=== PATIENT | female | born 1940 | race Caucasian/White ===

== ENCOUNTER 2021-02-24 11:41 | Inpatient (IN) | payer MEDICARE, OTHER ==
--- NOTE | 2021-02-24 12:15 | ED ---
General Adult HPI - General Stated complaint: nausea Time Seen by Provider: 02/24/21 12:14 Source: RN notes reviewed, old records reviewed - History of Present Illness Initial comments: Patient is an 80-year-old female with past medical history remarkable for COPD, CHF, heart. Heart surgery, atrial fibrillation and presents emergency Department complaining of substernal chest pain associated with nausea. She states this is been ongoing for approximate 1 week without any improvement. She also endorses some mild exertional dyspnea, and she does have a history of hypoxic respiratory failure on nasal cannula oxygen 4-5L. she denies any belly pain. Denies any headache, weakness, numbness. She is primarily here for the chest pain as well as the nausea. Patient has inferior substernal chest pain. No radiation to the abdomen. Patient points to the lower sternum when you ask the location of the pain. She describes an achy sensation. She states she has gotten this before, and is uncertain what is causing it. She denies any worsening orthopnea, she has been for multiple months to years sleeping in a recliner at home at night. She is uncertain when she last saw a alcoholic counselor. She endorses a nonproductive cough. Denies any weakness. She is no other acute complaints at this time. She was vaccinated for COVID-19. - Related Data Home Medications Medication Instructions Recorded Confirmed ALPRAZolam [Xanax] 0.5 mg PO HS@2100 02/24/21 02/24/21 Acetaminophen Tab [Tylenol Tab] 1,000 mg PO BID PRN 02/24/21 02/24/21 Acetaminophen [Tylenol] 1,000 mg PO DAILY@1500 02/24/21 02/24/21 Albuterol Nebulized [Ventolin 2.5 mg INHALATION RT-BID@0730,1600 02/24/21 02/24/21 Nebulized] Albuterol Nebulized [Ventolin 2.5 mg INHALATION RT-Q4H PRN 02/24/21 02/24/21 Nebulized] Diltiazem HCl [Diltiazem HCl 24Hr 180 mg PO BID@0700,1700 02/24/21 02/24/21 ER (XR)] Fluticasone Nasal [place] [Flonase 1 spray EA NOSTRIL Q12H PRN 02/24/21 02/24/21 Nasal [place]] Furosemide [Lasix] 80 mg PO DAILY@0700 02/24/21 02/24/21 MORPHINE ORAL MANJULA CONC 20mg/mL 5 mg PO Q2H PRN 02/24/21 02/24/21 [Roxanol Oral Soln Conc 20MG/ML] MORPHINE ORAL MANJULA CONC 20mg/mL 10 mg PO DAILY@1030 02/24/21 02/24/21 [Roxanol Oral Soln Conc 20MG/ML] MORPHINE ORAL MANJULA CONC 20mg/mL 10 mg PO Q2H PRN 02/24/21 02/24/21 [Roxanol Oral Soln Conc 20MG/ML] Mag Hydrox/Aluminum Hyd/Simeth 10 ml PO Q4H PRN 02/24/21 02/24/21 [Mylanta Maximum Strength Liq] Magnesium Hydroxide [Milk of 2,400 mg PO Q48H PRN 02/24/21 02/24/21 Magnesia] Meloxicam 7.5 mg PO DAILY@0700 02/24/21 02/24/21 Na Phos,M-B/Na Phos,Di-Ba [Fleet 133 ml RECTAL Q96H PRN 02/24/21 02/24/21 Adult] Nitroglycerin Sl Tabs [Nitrostat] 0.4 mg SUBLINGUAL Q5M PRN 02/24/21 02/24/21 Omeprazole [PriLOSEC] 20 mg PO BID@0530,1830 02/24/21 02/24/21 Polyethylene Glycol 3350 [Miralax] 17 gm PO DAILY@1430 02/24/21 02/24/21 Potassium Chloride ER [K-Dur 10] 10 meq PO BID@0700,1700 02/24/21 02/24/21 Prochlorperazine [Compazine] 10 mg PO DAILY@0700 02/24/21 02/24/21 Prochlorperazine [Compazine] 10 mg PO Q6H PRN 02/24/21 02/24/21 Sennosides/Docusate Sodium [Senna 1 cap PO BID@0700,1700 02/24/21 02/24/21 Plus 8.6-50 mg Softgel] bisacodyL [Dulcolax] 10 mg RECTAL Q72H PRN 02/24/21 02/24/21 metOLazone [Zaroxolyn] 2.5 mg PO DAILY@0530 02/24/21 02/24/21 Allergies Allergy/AdvReac Type Severity Reaction Status Date / Time amoxicillin [From Augmentin] Allergy Rash/Hives Verified 02/24/21 14:59 clavulanic acid Allergy Rash/Hives Verified 02/24/21 14:59 [From Augmentin] codeine AdvReac Itching Verified 02/24/21 14:59 Review of Systems ROS Statement: Those systems with pertinent positive or pertinent negative responses have been documented in the HPI. Review of Systems: CONST: Denies fever EYES: Denies blurry vision ENT: Denies nasal congestion C/V: Endorses substernal chest pain RESP: Endorses cough GI: Endorses nausea : Denies dysuria SKIN: Denies rash. MSK: Denies joint pain. NEURO: Denies headache ROS Other: All systems not noted in ROS Statement are negative. General Exam - General Exam Comments Initial Comments: General: Appears in no acute distress. On nasal cannula oxygen at her home settings. HEAD: Normal with no signs of head trauma. EYES: PERRLA, EOMI, conjunctiva normal, no discharge. ENT: Hearing grossly intact, normal oropharynx. RESPIRATORY: Patient is mildly reduced breath sounds bilaterally with end expiratory wheezing bilaterally. No increased work of breathing at this time. On nasal cannula oxygen and her home settings. C/V: Regular rate and rhythm. S1 and S2 auscultated, no edema, peripheral pulses 2+ and intact throughout ABD: Abd is soft, nontender, nondistended EXT: Normal range of motion, no obvious deformity SKIN: No rashes or lesions observed on exposed skin. NEURO: Alert and oriented x 4. Cranial nerves II-XII intact. No focal sensory or strength deficits. Course Vital Signs 02/24/21 02/24/21 02/24/21 12:30 14:24 14:31 Temperature 98.2 F Pulse Rate 94 95 Respiratory 22 20 20 Rate Blood Pressure 128/98 142/66 O2 Sat by Pulse 89 L 95 Oximetry 02/24/21 02/24/21 02/24/21 15:30 15:39 16:43 Temperature Pulse Rate 100 100 98 Respiratory 18 Rate Blood Pressure 153/97 O2 Sat by Pulse 99 Oximetry Medical Decision Making - Medical Decision Making Based on the patient's presentation and physical exam, I'm concerned for possible cardiac etiology for her current symptoms. Patient does appear to have an acute COPD exacerbation as well and she'll be provided with steroids as well as breathing treatments. She also be given antiemetics as well as a small fluid bolus. She is not seen a alcoholic counselor in quite some time. Patient was in agreement this plan. She'll be given an aspirin for chest pain. She'll be connected to continuous cardiac monitoring while she is here in the department. Patient's EKG reveals atrial fibrillation that is rate controlled. No signs of acute ischemia.Chest x-ray shows signs concerning for fluid overload versus viral pneumonia. Laboratory studies are remarkable for a mild leukocytosis of 11.0, microcytic anemia with hemoglobin of 10.5. Patient's bicarb is elevated to 44 which is likely chronic secondary to her chronic hypoxic respiratory failure. Troponin is negative. BNP is mildly elevated to about 1100. Urinalysis is concerning for UTI with a large amount of leukocyte esterase and 27 wbc's. She is nauseous we will treat this is positive. Covid is negative. On reevaluation, discussed the patient that I would like to admitted to the hospital for COPD exacerbation, chest pain as well as urinary tract infection. Patient is still feeling somewhat nauseous. She was in agreement with this plan. She'll be started on 1 g of Rocephin daily. 40 mg Solu-Medrol every 6 as well as every 4 units are ordered. We will trend her troponins as well. She was in agreement this plan. I spoke with the admitting physician, Dr. Dobbs, who accepted the patient was in agreement with the plan. Patient was therefore admitted in serious condition to telemetry bed. We will continue her IV Lasix. - Lab Data Result diagrams: 02/24/21 13:13 02/24/21 13:13 Lab Results 02/24/21 02/24/21 02/24/21 Range/Units 13:13 13:13 13:13 WBC 11.0 H (3.8-10.6) k/uL RBC 4.80 (3.80-5.40) m/uL Hgb 10.5 L (11.4-16.0) gm/dL Hct 35.9 (34.0-46.0) % MCV 74.8 L (80.0-100.0) fL MCH 21.9 L (25.0-35.0) pg MCHC 29.3 L (31.0-37.0) g/dL RDW 17.3 H (11.5-15.5) % Plt Count 334 (150-450) k/uL MPV 9.2 Neutrophils % 61 % Lymphocytes % 21 % Monocytes % 10 % Eosinophils % 6 % Basophils % 1 % Neutrophils # 6.7 (1.3-7.7) k/uL Lymphocytes # 2.3 (1.0-4.8) k/uL Monocytes # 1.1 H (0-1.0) k/uL Eosinophils # 0.6 (0-0.7) k/uL Basophils # 0.1 (0-0.2) k/uL Hypochromasia Marked Anisocytosis Slight Microcytosis Moderate PT 9.7 (9.0-12.0) sec INR 0.9 (<1.2) APTT 20.8 L (22.0-30.0) sec Sodium (137-145) mmol/L Potassium (3.5-5.1) mmol/L Chloride (98-107) mmol/L Carbon Dioxide (22-30) mmol/L Anion Gap mmol/L BUN (7-17) mg/dL Creatinine (0.52-1.04) mg/dL Est GFR (CKD-EPI)AfAm (>60 ml/min/1.73 sqM) Est GFR (CKD-EPI)NonAf (>60 ml/min/1.73 sqM) Glucose (74-99) mg/dL Calcium (8.4-10.2) mg/dL Magnesium (1.6-2.3) mg/dL Total Bilirubin (0.2-1.3) mg/dL AST (14-36) U/L ALT (4-34) U/L Alkaline Phosphatase (38-126) U/L Troponin I (0.000-0.034) ng/mL NT-Pro-B Natriuret Pep pg/mL Total Protein (6.3-8.2) g/dL Albumin (3.5-5.0) g/dL Urine Color Light Yellow Urine Appearance Clear (Clear) Urine pH 7.5 (5.0-8.0) Ur Specific [place] 1.008 (1.001-1.035) Urine Protein Negative (Negative) Urine Glucose (UA) Negative (Negative) Urine Ketones Negative (Negative) Urine Blood Negative (Negative) Urine Nitrite Negative (Negative) Urine Bilirubin Negative (Negative) Urine Urobilinogen <2.0 (<2.0) mg/dL Ur Leukocyte Esterase Large H (Negative) Urine RBC 2 (0-5) /hpf Urine WBC 27 H (0-5) /hpf Ur Squamous Epith Cells 1 (0-4) /hpf Urine Mucus Rare H (None) /hpf Coronavirus (PCR) (Not Detectd) 02/24/21 02/24/21 02/24/21 Range/Units 13:13 13:13 13:13 WBC (3.8-10.6) k/uL RBC (3.80-5.40) m/uL Hgb (11.4-16.0) gm/dL Hct (34.0-46.0) % MCV (80.0-100.0) fL MCH (25.0-35.0) pg MCHC (31.0-37.0) g/dL RDW (11.5-15.5) % Plt Count (150-450) k/uL MPV Neutrophils % % Lymphocytes % % Monocytes % % Eosinophils % % Basophils % % Neutrophils # (1.3-7.7) k/uL Lymphocytes # (1.0-4.8) k/uL Monocytes # (0-1.0) k/uL Eosinophils # (0-0.7) k/uL Basophils # (0-0.2) k/uL Hypochromasia Anisocytosis Microcytosis PT (9.0-12.0) sec INR (<1.2) APTT (22.0-30.0) sec Sodium 137 (137-145) mmol/L Potassium 3.6 (3.5-5.1) mmol/L Chloride 84 L (98-107) mmol/L Carbon Dioxide 44 H* (22-30) mmol/L Anion Gap 9 mmol/L BUN 26 H (7-17) mg/dL Creatinine 0.90 (0.52-1.04) mg/dL Est GFR (CKD-EPI)AfAm 70 (>60 ml/min/1.73 sqM) Est GFR (CKD-EPI)NonAf 60 (>60 ml/min/1.73 sqM) Glucose 109 H (74-99) mg/dL Calcium 9.7 (8.4-10.2) mg/dL Magnesium 1.9 (1.6-2.3) mg/dL Total Bilirubin 0.5 (0.2-1.3) mg/dL AST 43 H (14-36) U/L ALT 54 H (4-34) U/L Alkaline Phosphatase 173 H (38-126) U/L Troponin I <0.012 (0.000-0.034) ng/mL NT-Pro-B Natriuret Pep 1190 pg/mL Total Protein 7.0 (6.3-8.2) g/dL Albumin 3.7 (3.5-5.0) g/dL Urine Color Urine Appearance (Clear) Urine pH (5.0-8.0) Ur Specific [place] (1.001-1.035) Urine Protein (Negative) Urine Glucose (UA) (Negative) Urine Ketones (Negative) Urine Blood (Negative) Urine Nitrite (Negative) Urine Bilirubin (Negative) Urine Urobilinogen (<2.0) mg/dL Ur Leukocyte Esterase (Negative) Urine RBC (0-5) /hpf Urine WBC (0-5) /hpf Ur Squamous Epith Cells (0-4) /hpf Urine Mucus (None) /hpf Coronavirus (PCR) (Not Detectd) 02/24/21 Range/Units 13:13 WBC (3.8-10.6) k/uL RBC (3.80-5.40) m/uL Hgb (11.4-16.0) gm/dL Hct (34.0-46.0) % MCV (80.0-100.0) fL MCH (25.0-35.0) pg MCHC (31.0-37.0) g/dL RDW (11.5-15.5) % Plt Count (150-450) k/uL MPV Neutrophils % % Lymphocytes % % Monocytes % % Eosinophils % % Basophils % % Neutrophils # (1.3-7.7) k/uL Lymphocytes # (1.0-4.8) k/uL Monocytes # (0-1.0) k/uL Eosinophils # (0-0.7) k/uL Basophils # (0-0.2) k/uL Hypochromasia Anisocytosis Microcytosis PT (9.0-12.0) sec INR (<1.2) APTT (22.0-30.0) sec Sodium (137-145) mmol/L Potassium (3.5-5.1) mmol/L Chloride (98-107) mmol/L Carbon Dioxide (22-30) mmol/L Anion Gap mmol/L BUN (7-17) mg/dL Creatinine (0.52-1.04) mg/dL Est GFR (CKD-EPI)AfAm (>60 ml/min/1.73 sqM) Est GFR (CKD-EPI)NonAf (>60 ml/min/1.73 sqM) Glucose (74-99) mg/dL Calcium (8.4-10.2) mg/dL Magnesium (1.6-2.3) mg/dL Total Bilirubin (0.2-1.3) mg/dL AST (14-36) U/L ALT (4-34) U/L Alkaline Phosphatase (38-126) U/L Troponin I (0.000-0.034) ng/mL NT-Pro-B Natriuret Pep pg/mL Total Protein (6.3-8.2) g/dL Albumin (3.5-5.0) g/dL Urine Color Urine Appearance (Clear) Urine pH (5.0-8.0) Ur Specific [place] (1.001-1.035) Urine Protein (Negative) Urine Glucose (UA) (Negative) Urine Ketones (Negative) Urine Blood (Negative) Urine Nitrite (Negative) Urine Bilirubin (Negative) Urine Urobilinogen (<2.0) mg/dL Ur Leukocyte Esterase (Negative) Urine RBC (0-5) /hpf Urine WBC (0-5) /hpf Ur Squamous Epith Cells (0-4) /hpf Urine Mucus (None) /hpf Coronavirus (PCR) Not Detected (Not Detectd) - EKG Data -: EKG Interpreted by Me EKG Comments: 12-lead Electrocardiogram Interpretation Note EKG was reviewed and interpreted by myself. 12-lead ECG performed at 1248 is interpreted by me as revealing atrial fibrillation at a rate of 105 beats per minute. Right axis deviation. IA intervals unobtainable. QRS durations 120 ms, QTc is 539 ms.. There were no ST or T wave abnormalities to suggest myocardial ischemia or injury. R wave progression across the precordium was satisfactory. By my interpretation this EKG is non-diagnostic for acute ischemia. Patient has a known history of atrial fibrillation. Disposition Clinical Impression: Chest pain of unknown etiology, Chronic respiratory failure with hypoxia, COPD with acute exacerbation, UTI (urinary tract infection) Disposition: ADMITTED IP TO THIS HOSP Condition: Serious
[2021-02-24] MEDS ORDERED: SODIUM CHLORIDE 0.9% 500 ML 500 ML IV STA (12:30)
[2021-02-24] MEDS ORDERED: IPRATROPIUM-ALBUTEROL 3 ML NEB INHALATION STA (12:30)
[2021-02-24] MEDS ORDERED: MAGNESIUM SULFATE-D5W PMX 1 GM in DEXTROSE/WATER 1 100ML.BAG IVPB ONE (12:30)
[2021-02-24] MEDS ORDERED: ASPIRIN 81 MG PO STA (12:30)
[2021-02-24] MEDS ORDERED: ONDANSETRON 4 MG/2 ML VIAL IVP STA (12:31)
[2021-02-24] MEDS ORDERED: methylPREDNISolone SOD SUCCI 125 MG/2 ML VIAL IV STA (12:31)
--- NOTE | 2021-02-24 13:45 | XR ---
EXAMINATION TYPE: XR chest 2V DATE OF EXAM: 02/24/2021 COMPARISON: NONE HISTORY: 80 years Female. STUDY INDICATION GIVEN: Chest Pain . TECHNIQUE: Frontal lateral chest radiograph IMPRESSION: Patchy low-attenuation in the right lung base. Scattered interstitial opacities in the peripheral asp ect of both lungs. Findings concerning for multifocal pneumonia and/or mild pulmonary edema. Clinical correlation for covid 19 pneumonia recommended. Mild cardiomegaly with postsurgical changes. Atherosclerotic calcifications in the intrathoracic aort a noted. No pneumothorax or pleural effusion. No acute osseous abnormality.
[2021-02-24 13:47] LABS: Anisocytosis Slight; Basophils # (A) 0.1 k/uL (0-0.2); Basophils % (A) 1 %; Eosinophils # (A) 0.6 k/uL (0-0.7); Eosinophils % (A) 6 %; HCT 35.9 % (34.0-46.0); HGB 10.5 gm/dL (11.4-16.0); Hypochromasia Marked; Lymphocytes # (A) 2.3 k/uL (1.0-4.8); Lymphocytes % (A) 21 %; MCH 21.9 pg (25.0-35.0); MCHC 29.3 g/dL (31.0-37.0); MCV 74.8 fL (80.0-100.0); Mean Platelet Volume 9.2; Microcytosis Moderate; Monocytes # (A) 1.1 k/uL (0-1.0); Monocytes % (A) 10 %; Neutrophils # (A) 6.7 k/uL (1.3-7.7); Neutrophils % (A) 61 %; Platelet Count 334 k/uL (150-450); RDW 17.3 % (11.5-15.5)
[2021-02-24 13:57] LABS: Albumin 3.7 g/dL (3.5-5.0); Calcium 9.7 mg/dL (8.4-10.2); Magnesium 1.9 mg/dL (1.6-2.3); Potassium 3.6 mmol/L (3.5-5.1); Total Bilirubin 0.5 mg/dL (0.2-1.3)
[2021-02-24 13:58] LABS: Appearance,Urine Clear (Clear); Bilirubin,Urine Negative (Negative); Blood,Urine Negative (Negative); Color,Urine Light Yellow; Glucose,Urine (UA) Negative (Negative); Ketones,Urine Negative (Negative); Leukocyte Esterase,Urine Large (Negative); Mucus,Urine Rare /hpf; Nitrite,Urine Negative (Negative); PH, Urine 7.5 (5.0-8.0); Protein,Urine Negative (Negative); RBC,Urine 2 /hpf (0-5); Specific Gravity,Urine 1.008 (1.001-1.035); Squamous Epithelial Cell,Urine 1 /hpf (0-4); Urobilinogen,Urine <2.0 mg/dL (<2.0); WBC,Urine 27 /hpf (0-5)
[2021-02-24 13:59] LABS: INR 0.9 (<1.2); Prothrombin Time 9.7 sec (9.0-12.0)
[2021-02-24 14:15] LABS: Partial Thromboplastin Time 20.8 sec (22.0-30.0)
[2021-02-24] MEDS ORDERED: FUROSEMIDE 10 MG/ML 4 ML VIAL IV STA (15:48)
[2021-02-24] MEDS ORDERED: ONDANSETRON 4 MG/2 ML VIAL IVP PRN (16:02)
[2021-02-24] MEDS ORDERED: NALOXONE 0.4 MG/ML 1 ML VIAL IV PRN (16:02)
[2021-02-24] MEDS ORDERED: bisacodyL 10 MG SUPP RECTAL PRN (16:05)
[2021-02-24] MEDS ORDERED: FLUTICASONE 50MCG/SPRAY NASAL 16GM EA NOSTRIL PRN (16:05)
[2021-02-24] MEDS ORDERED: ALBUTEROL NEBULIZED 2.5 MG/3 ML INHALATION PRN (16:05)
[2021-02-24] MEDS ORDERED: MAG HYDROX/AL HYDROX/SIMETH 30 ML CUP PO PRN (16:05)
[2021-02-24] MEDS ORDERED: NA PHOS,M-B/NA PHOS,DI-BA 133 ML ENEMA RECTAL PRN (17:35)
[2021-02-24] MEDS ORDERED: MORPHINE CONC SOLN 10mg/0.5mL ORAL SYRG PO PRN (17:35)
[2021-02-24] MEDS ORDERED: NITROGLYCERIN SL TABS 0.4 MG TAB SUBLINGUAL PRN (17:35)
[2021-02-24] MEDS ORDERED: MAGNESIUM HYDROXIDE 2,400 MG/10 ML CUP PO PRN (17:35)
--- NOTE | 2021-02-24 18:12 | HP ---
HISTORY AND PHYSICAL DATE OF SERVICE: 02/24/2021 CHIEF COMPLAINTS: Chest pain, nausea and shortness of breath. HISTORY OF PRESENT ILLNESS: This 80-year-old woman with a past medical history of multiple medical problems, including atrial fibrillation, CAD, history of CABG, CHF, COPD, being followed by Dr. Johnathan ross in the [facility], was complaining of nausea and left-sided chest pain. The chest pain was going on for the last one week without any relief. The patient had some shortness of breath. The patient is on nasal cannula 4 to 5 L, and the patient came to [facility] and was admitted for further evaluation and treatment. The evaluation showed elevated WBC of 11. Sodium was 137. CO2 was 44, glucose 109. AST and ALT were mildly elevated. UA shows some evidence of UTI and the patient has been admitted for further evaluation and treatment. The chest x-ray, which was reviewed personally by me, showed increased bronchovascular markings. No acute pneumonia was noted. EKG showed non-progression of R-waves as well as atrial fibrillation. There is no history of fever, rigors, chills at this time. PAST MEDICAL HISTORY: Atrial fibrillation, history of CAD, chest pain, CAD, CABG, CHF, COPD. HOME MEDICATIONS: Home medications include morphine oral solution, acetaminophen, Compazine. Nitrostat, milk of magnesia, Flonase, Senna, K-Dur, Prilosec, diltiazem, Ventolin, Tylenol, Xanax, Zaroxolyn, MiraLAX, meloxicam, Lasix. Doses are noted. ALLERGIES: AUGMENTIN, CODEINE. FAMILY HISTORY: No history of heart disease or strokes in the family. SOCIAL HISTORY: Previous history of smoking. REVIEW OF SYSTEMS: ENT: Diminished hearing. Diminished vision. CARDIOVASCULAR SYSTEM: As mentioned earlier. RESPIRATORY SYSTEM: As mentioned earlier. GI: No nausea, vomiting, diarrhea. : No dysuria. NERVOUS SYSTEM: No numbness, weakness. ALLERGY/IMMUNOLOGY: No asthma or hay fever. MUSCULOSKELETAL: As mentioned earlier. HEMATOLOGY/ONCOLOGY: No history of anemia. ENDOCRINE: No history of diabetes, hypothyroidism. CONSTITUTIONAL: As mentioned earlier. DERMATOLOGY: Negative. RHEUMATOLOGY: Negative. PSYCHIATRY: As mentioned earlier. PHYSICAL EXAMINATION: Patient is alert, oriented x. Pulse 98, blood pressure 153/97, respiration 18, temperature normal, pulse ox 99% on 4 L. HEENT: Conjunctivae normal. Oral mucosa moist. NECK: No jugular venous distention. No carotid bruit. No lymph node enlargement. CARDIOVASCULAR: S1, S2 muffled. No S3. No S4. RESPIRATION: Breath sounds diminished at the bases. A few scattered rhonchi and crackles. ABDOMEN: Soft, nontender. No mass palpable. LEGS: No edema. No swelling. NERVOUS SYSTEM: Higher functions as mentioned earlier. Moves all 4 limbs. No focal motor or sensory deficit. LYMPHATICS: No lymph node palpable in neck, axillae or groin. SKIN: No ulcer, rash, bleeding. JOINTS: No active deforming arthropathy. LABS: WBC 11, hemoglobin 10.5. Sodium 137, potassium 3.6. Other labs are noted. ASSESSMENT: 1. Left-sided chest pain. Rule out coronary artery disease. Possible unstable angina. 2. Chronic obstructive pulmonary disease, mild, acute exacerbation. 3. Acute urinary tract infection, present on admission. 4. Increased white count. 5. Anemia, microcytic. 6. Elevated carbon dioxide. 7. Chronic hypoxic hypercarbic respiratory failure, on home oxygen. 8. History of atrial fibrillation. 9. History of chest pain, angina. 10.History of coronary artery disease, coronary artery bypass grafting. 11.History of congestive heart failure. 12.History of chronic obstructive pulmonary disease. 13.Remote history of nicotine dependence. 14.FULL CODE. RECOMMENDATIONS AND DISCUSSION: In this 80-year-old woman who presented with multiple complex medical issues, we will monitor the patient closely, continue the current medications, continue symptomatic treatment. Rule out myocardial infarction. Cardiology consultation. Medical treatment possibly and empiric antibiotics, bronchodilators. Symptomatic treatment also will be provided. Prognosis is guarded because of multiple complex medical issues in this elderly individual with multiple complications. Further recommendations to follow. MMODL / IJN: [id number] / MTDD
[2021-02-24] MEDS: POTASSIUM CHLORIDE ER 10 MEQ TAB.ER.PRT PO SCH (21:44)
[2021-02-24] MEDS: ALPRAZolam 0.5 MG TAB PO SCH (21:44)
[2021-02-24] MEDS: methylPREDNISolone SOD SUCCI 40 MG/ML 1 ML VIAL IV SCH (21:44)
[2021-02-24] MEDS: HEPARIN SODIUM,PORCINE/PF 5,000 UNIT/0.5 ML SYRINGE SQ SCH (21:44)
[2021-02-24] MEDS: DILTIAZEM CD 180 MG CAP.ER.24H PO SCH (21:44)
[2021-02-25] MEDS: IPRATROPIUM-ALBUTEROL 3 ML NEB INHALATION SCH ×6 (00:07→20:23)
[2021-02-25] MEDS: methylPREDNISolone SOD SUCCI 40 MG/ML 1 ML VIAL IV SCH ×5 (00:47→23:46)
[2021-02-25] MEDS ORDERED: MORPHINE ORAL SOLN 10 MG/5 ML CUP PO PRN (01:00)
[2021-02-25] MEDS: PROCHLORPERAZINE 10 MG TAB PO SCH (05:55)
[2021-02-25] MEDS: DILTIAZEM CD 180 MG CAP.ER.24H PO SCH (05:55)
[2021-02-25] MEDS: POTASSIUM CHLORIDE ER 10 MEQ TAB.ER.PRT PO SCH ×2 (05:56→18:15)
[2021-02-25] MEDS: metOLazone 2.5 MG TAB PO SCH (05:56)
[2021-02-25] MEDS: SENNOSIDES 8.6 MG TAB PO SCH ×2 (05:56→18:15)
[2021-02-25] MEDS ORDERED: MELOXICAM 7.5 MG TAB PO SCH (07:00)
[2021-02-25 07:47] LABS: Glucose,Whole Blood 171 mg/dL (75-99)
[2021-02-25] MEDS: ALBUTEROL NEBULIZED 2.5 MG/3 ML INHALATION SCH ×2 (08:37→15:42)
[2021-02-25] MEDS: FUROSEMIDE 40 MG TAB PO SCH (08:41)
[2021-02-25] MEDS: HEPARIN SODIUM,PORCINE/PF 5,000 UNIT/0.5 ML SYRINGE SQ SCH ×2 (08:41→20:52)
[2021-02-25] MEDS: PANTOPRAZOLE 40 MG TABLET PO SCH ×2 (08:45→18:15)
[2021-02-25] MEDS: ACETAMINOPHEN TAB 325 MG TAB PO PRN (08:59)
[2021-02-25] MEDS ORDERED: DILTIAZEM ORAL 60 MG TAB PO STA (10:13)
[2021-02-25] MEDS ORDERED: HEPARIN SODIUM 1,000 UN/ML (10ML VL) IV ONE (10:15)
--- NOTE | 2021-02-25 10:16 | P.CRDCN ---
History of Present Illness History of present illness: HISTORY OF PRESENTING ILLNESS Patient is a pleasant 80-year-old female with history of COPD on 4 L home oxygen, coronary artery disease status post CABG 1999, hypertension, hyperlipidemia, persistent atrial fibrillation with attempted cardioversion previously, arthritis, anemia who presents secondary to chest pain for approximately one week. Patient normally resides at an [facility] and is severely limited in her activities, able to walk to her commode and back. She states normally she is inhibited by shortness of breath as well as chest pressure with minimal activity such as walking across the [place]. She states this has been fairly constant for approximately 3 months. She does not follow with a licensed certified orthotist. She previously followed with a licensed certified orthotist in [facility] who came from [place], some doctor , however she cannot recall. She presents secondary to chest pain which feels similar to her prior CABG and which she gets fairly often which has been fairly constant over the last 1 week. She did have previous hospitalization at [facility] in [place] a month or 2 ago where she was told it was mainly related to A. fib and she did undergo cardioversion at that time. She states she recalls feeling "like she was 17 years old "after the cardioversion however apparently went right back and of A. fib and therefore felt back to her normal self. For some reason she has not b een on anticoagulation however admits previously she was on Eliquis. She denies any hematochezia or melena however does have iron deficiency anemia. She also apparently is not on aspirin and was told that she was taken off of this for some reason. She has not had previous stress testing recently and believes her last heart catheterization was approximately 10 years ago. She does not recall any recent stenting. She attributes most of her debility to COPD on 4 L however also appears to be fairly severe unstable angina with inability to do more than walk to a commode without getting chest pain. On presentation with she was found to be in A. fib with mild RVR, heart rate since admission have been 90s to 110s. She was placed on her home Cardizem 180 mg twice a day as well as her home Lasix 80 mg daily and given steroids. Blood work reveals white blood cell count 11, hemoglobin 10.5, MCV 74, platelets 334, sodium 137, bicarb 44, BUN 26, creatinine is 0.9, troponin negative 3, proBNP 1190, AST 43, ALP 54, albumin 3.7. Chest x-ray shows bilateral patchy infiltrates versus pulmonary edema. Unclear if this is new or old. COVID-19 was negative. She denies any fevers or chills or cough. REVIEW OF SYSTEMS At the time of my exam: CONSTITUTIONAL: Denies fever or chills. CARDIOVASCULAR: +chest pain, +shortness of breath, no orthopnea, PND or palpitations. RESPIRATORY: Denies cough. GASTROINTESTINAL: Denies abdominal pain, diarrhea, constipation, nausea or vomiting. MUSCULOSKELETAL: Denies myalgias. NEUROLOGIC: Denies numbness, tingling or weakness. ENDOCRINE: Denies fatigue, weight change, polydipsia or polyurina. GENITOURINARY: Denies burning, hematuria or urgency with micturation. HEMATOLOGIC: Denies history of anemia or bleeding. PHYSICAL EXAMINATION Vital signs reviewed. CONSTITUTIONAL: No apparent distress, frail on O2 HEENT: Head is normocephalic. Pupils are equal, round. Sclerae anicteric. Mucous membranes of the mouth are moist. No JVD. No carotid bruit. CHEST EXAMINATION: Lungs are clear to auscultation. No chest wall tenderness is noted on palpation or with deep breathing. HEART EXAMINATION: Irregular rate and rhythm. S1, S2 heard. No murmurs, gallops or rub. ABDOMEN: Soft, nontender. Positive bowel sounds. EXTREMITIES: 2+ peripheral pulses, no lower extremity edema and no calf tenderness. NEUROLOGIC EXAMINATION: Patient is awake, alert and oriented x3. ASSESSMENT 1. Unstable angina 2. Coronary artery disease status post CABG 3. Acute on chronic respiratory failure component of chronic COPD however additional component of angina 4. Persistent atrial fibrillation with mild RVR 5. Chronic heart failure (assumed diastolic), appears euvolemic 6. COPD on home O2 7. Hypertension 8. Hyperlipidemia 9. Anemia, likely iron deficiency and has been off of any anticoagulation or antiplatelets PLAN Patient with multiple complex medical problems. She appears to have unstable angina with chest pain and shortness breath with walking to the bathroom and therefore has been using a commode. More recently she has been having chest pain at rest suspect related to severe CAD and mild A. fib with RVR. We will attempt to control her A. fib with rate control and we will increase her Cardizem. She did feel "like she was 17 "after previous cardioversion however apparently this only lasted for approximately 10 minutes. We will start am iodarone and we will try a few months however monitor closely with severe respiratory issues. Possible ablation in the future if she truly was that symptomatic from A. fib. Also if unable to tolerate rhythm control may even consider AV edwin ablation. Patient does however have significant angina and therefore discussed recommendations for heart catheterization, likely 02/26 or 02/27. Check 2-D echo. Attempt to obtain records from prior licensed certified orthotist, Aurelia guaman. Start patient on heparin drip, aspirin and monitor for any bleeding. Likely Eliquis which she had taken previously pending further heart catheterization. Although she is very frail with multiple comorbidities, she does not appear to have any significant quality of life with being bedbound and unable to do any more activity then walked her commode and therefore discussed risks and benefits and heart catheterization with possible PCI appears reasonable despite possible bleeding risk. We will stop her multiple back in attempt to prevent bleeding. Check iron levels and likely give her iron infusion if iron levels low. Further recommendations to follow. Past Medical History Past Medical History: Atrial Fibrillation, Coronary Artery Disease (CAD), Chest Pain / Angina, Heart Failure, COPD, Osteoarthritis (OA) Additional Past Medical History / Comment(s): cabg, HF, COPD History of Any Multi-Drug Resistant Organisms: None Reported Past Surgical History: Adenoidectomy, Cholecystectomy, Coronary Bypass/CABG, Tonsillectomy Past Anesthesia/Blood Transfusion Reactions: No Reported Reaction Past Psychological History: No Psychological Hx Reported Smoking Status: Former smoker Past Alcohol Use History: None Reported Past Drug Use History: None Reported Medications and Allergies Home Medications Medication Instructions Recorded Confirmed Type ALPRAZolam [Xanax] 0.5 mg PO HS@2100 02/24/21 02/24/21 History Acetaminophen Tab [Tylenol Tab] 1,000 mg PO BID PRN 02/24/21 02/24/21 History Acetaminophen [Tylenol] 1,000 mg PO DAILY@1500 02/24/21 02/24/21 History Albuterol Nebulized [Ventolin 2.5 mg INHALATION RT-BID@0730,1600 02/24/21 02/24/21 History Nebulized] Albuterol Nebulized [Ventolin 2.5 mg INHALATION RT-Q4H PRN 02/24/21 02/24/21 History Nebulized] Diltiazem HCl [Diltiazem HCl 24Hr 180 mg PO BID@0700,1700 02/24/21 02/24/21 History ER (XR)] Fluticasone Nasal [place] [Flonase 1 spray EA NOSTRIL Q12H PRN 02/24/21 02/24/21 History Nasal [place]] Furosemide [Lasix] 80 mg PO DAILY@0700 02/24/21 02/24/21 History MORPHINE ORAL MANJULA CONC 20mg/mL 5 mg PO Q2H PRN 02/24/21 02/24/21 History [Roxanol Oral Soln Conc 20MG/ML] MORPHINE ORAL MANJULA CONC 20mg/mL 10 mg PO DAILY@1030 02/24/21 02/24/21 History [Roxanol Oral Soln Conc 20MG/ML] MORPHINE ORAL MANJULA CONC 20mg/mL 10 mg PO Q2H PRN 02/24/21 02/24/21 History [Roxanol Oral Soln Conc 20MG/ML] Mag Hydrox/Aluminum Hyd/Simeth 10 ml PO Q4H PRN 02/24/21 02/24/21 History [Mylanta Maximum Strength Liq] Magnesium Hydroxide [Milk of 2,400 mg PO Q48H PRN 02/24/21 02/24/21 History Magnesia] Meloxicam 7.5 mg PO DAILY@0700 02/24/21 02/24/21 History Na Phos,M-B/Na Phos,Di-Ba [Fleet 133 ml RECTAL Q96H PRN 02/24/21 02/24/21 History Adult] Nitroglycerin Sl Tabs [Nitrostat] 0.4 mg SUBLINGUAL Q5M PRN 02/24/21 02/24/21 History Omeprazole [PriLOSEC] 20 mg PO BID@0530,1830 02/24/21 02/24/21 History Polyethylene Glycol 3350 [Miralax] 17 gm PO DAILY@1430 02/24/21 02/24/21 History Potassium Chloride ER [K-Dur 10] 10 meq PO BID@0700,1700 02/24/21 02/24/21 History Prochlorperazine [Compazine] 10 mg PO DAILY@0700 02/24/21 02/24/21 History Prochlorperazine [Compazine] 10 mg PO Q6H PRN 02/24/21 02/24/21 History Sennosides/Docusate Sodium [Senna 1 cap PO BID@0700,1700 02/24/21 02/24/21 History Plus 8.6-50 mg Softgel] bisacodyL [Dulcolax] 10 mg RECTAL Q72H PRN 02/24/21 02/24/21 History metOLazone [Zaroxolyn] 2.5 mg PO DAILY@0530 02/24/21 02/24/21 History Allergies Allergy/AdvReac Type Severity Reaction Status Date / Time amoxicillin [From Augmentin] Allergy Rash/Hives Verified 02/24/21 14:59 clavulanic acid Allergy Rash/Hives Verified 02/24/21 14:59 [From Augmentin] codeine AdvReac Itching Verified 02/24/21 14:59 Physical Exam Vitals: Vital Signs Temp Pulse Pulse Resp BP BP Pulse Ox 02/25/21 08:46 84 02/25/21 08:37 80 02/25/21 07:30 98.5 F 82 16 131/77 96 02/25/21 02:00 85 16 02/25/21 01:59 97.4 F L 85 16 106/69 94 L 02/25/21 00:20 98 02/25/21 00:07 93 02/24/21 20:00 99 18 02/24/21 19:19 98.3 F 99 18 147/77 97 02/24/21 17:48 18 97 02/24/21 16:43 98 18 153/97 99 02/24/21 15:39 100 02/24/21 15:30 100 02/24/21 14:31 20 02/24/21 14:24 95 20 142/66 95 02/24/21 12:30 98.2 F 94 22 128/98 89 L Intake and Output 02/24/21 02/25/21 02/25/21 22:59 06:59 14:59 Intake Total 50 30 Balance 50 30 Intake: Intake, IV Titration 50 Amount cefTRIAXone 1 gm In 50 Sodium Chloride 0.9% 50 ml @ 100 mls/hr IVPB Q24HR [facility] Rx#:[id number] Oral 30 Other: # Voids 2 Weight 63.503 kg Results 02/24/21 13:13 02/24/21 13:13 Cardiac Enzymes 02/24/21 02/24/21 02/24/21 Range/Units 13:13 13:13 20:16 AST 43 H (14-36) U/L Troponin I <0.012 <0.012 (0.000-0.034) ng/mL 02/24/21 Range/Units 22:43 AST (14-36) U/L Troponin I <0.012 (0.000-0.034) ng/mL Coagulation 02/24/21 Range/Units 13:13 PT 9.7 (9.0-12.0) sec APTT 20.8 L (22.0-30.0) sec CBC 02/24/21 Range/Units 13:13 WBC 11.0 H (3.8-10.6) k/uL RBC 4.80 (3.80-5.40) m/uL Hgb 10.5 L (11.4-16.0) gm/dL Hct 35.9 (34.0-46.0) % Plt Count 334 (150-450) k/uL Comprehensive Metabolic Panel 02/24/21 Range/Units 13:13 Sodium 137 (137-145) mmol/L Potassium 3.6 (3.5-5.1) mmol/L Chloride 84 L (98-107) mmol/L Carbon Dioxide 44 H* (22-30) mmol/L BUN 26 H (7-17) mg/dL Creatinine 0.90 (0.52-1.04) mg/dL Glucose 109 H (74-99) mg/dL Calcium 9.7 (8.4-10.2) mg/dL AST 43 H (14-36) U/L ALT 54 H (4-34) U/L Alkaline Phosphatase 173 H (38-126) U/L Total Protein 7.0 (6.3-8.2) g/dL Albumin 3.7 (3.5-5.0) g/dL Current Medications Generic Name Dose Route Start Last Admin Trade Name Freq PRN Reason Stop Dose Admin Acetaminophen 650 mg 02/24/21 16:02 02/25/21 08:59 Acetaminophen Tab 325 Mg Tab PO 650 mg Q6HR PRN Administration Mild Pain or Fever > 100.5 Al Hydroxide/Mg Hydroxide 10 ml 02/24/21 16:05 Mag Hydrox/Al Hydrox/Simeth 30 Ml Cup PO Q4H PRN GI Upset Albuterol Sulfate 2.5 mg 02/25/21 07:30 02/25/21 08:37 Albuterol Nebulized 2.5 Mg/3 Ml INHALATION Not Given RT-BID@0730,1600 [facility] Albuterol Sulfate 2.5 mg 02/24/21 16:05 Albuterol Nebulized 2.5 Mg/3 Ml INHALATION RT-Q4H PRN Shortness Of Breath Albuterol/Ipratropium 3 ml 02/25/21 00:00 02/25/21 08:35 Ipratropium-Albuterol 3 Ml Neb INHALATION 3 ml RT-Q4H NATHALIE Administration Alprazolam 0.5 mg 02/24/21 21:00 02/24/21 21:44 Alprazolam 0.5 Mg Tab PO 0.5 mg HS@2100 [facility] Administration Bisacodyl 10 mg 02/24/21 16:05 Bisacodyl 10 Mg Supp RECTAL Q72H PRN Constipation Diltiazem HCl 180 mg 02/24/21 17:00 02/25/21 05:55 Diltiazem Cd 180 Mg Cap.Er.24h PO 180 mg BID@0700,1700 [facility] Administration Fluticasone Propionate 1 spray 02/24/21 16:05 Fluticasone 50mcg/[place] Nasal 16gm EA NOSTRIL Q12H PRN Allergy Symptoms Furosemide 80 mg 02/25/21 07:00 02/25/21 08:41 Furosemide 40 Mg Tab PO Not Given DAILY@0700 [facility] Heparin Sodium (Porcine) 5,000 unit 02/24/21 21:00 02/25/21 08:41 Heparin Sodium,Porcine/Pf 5,000 Unit/0.5 Ml Syringe SQ 5,000 unit Q12HR [facility] Administration Ceftriaxone Sodium 1 gm/ 50 mls @ 100 mls/hr 02/24/21 16:15 02/25/21 08:40 Sodium Chloride IVPB 100 mls/hr Q24HR [facility] Administration Magnesium Hydroxide 2,400 mg 02/24/21 17:35 Magnesium Hydroxide 2,400 Mg/10 Ml Cup PO Q48H PRN Constipation Meloxicam 7.5 mg 02/25/21 07:00 02/25/21 05:55 Meloxicam 7.5 Mg Tab PO 7.5 mg DAILY@0700 NATHALIE Administration Methylprednisolone Sodium Succinate 40 mg 02/24/21 21:00 02/25/21 05:55 Methylprednisolone Sod Succi 40 Mg/Ml 1 Ml Vial IV 40 mg Q6HR NATHALIE Administration Metolazone 2.5 mg 02/25/21 05:30 02/25/21 05:56 Metolazone 2.5 Mg Tab PO 2.5 mg DAILY@0530 [facility] Administration Morphine Sulfate 10 mg 02/25/21 10:30 Morphine Oral Soln 10 Mg/5 Ml Cup PO DAILY@1030 [facility] Morphine Sulfate 10 mg 02/25/21 01:00 Morphine Oral Soln 10 Mg/5 Ml Cup PO Q6H PRN Pain Naloxone HCl 0.2 mg 02/24/21 16:02 Naloxone 0.4 Mg/Ml 1 Ml Vial IV Q2M PRN Opioid Reversal Nitroglycerin 0.4 mg 02/24/21 17:35 Nitroglycerin Sl Tabs 0.4 Mg Tab SUBLINGUAL Q5M PRN Chest Pain Ondansetron HCl 4 mg 02/24/21 16:02 Ondansetron 4 Mg/2 Ml Vial IVP Q8HR PRN Nausea And Vomiting Pantoprazole Sodium 40 mg 02/25/21 07:30 02/25/21 08:45 Pantoprazole 40 Mg Tablet PO 40 mg AC-BID NATHALIE Administration Polyethylene Glycol 17 gm 02/25/21 14:30 Polyethylene Glycol 3350 17 Gm Powd.Pack PO DAILY@1430 [facility] Potassium Chloride 10 meq 02/24/21 17:00 02/25/21 05:56 Potassium Chloride Er 10 Meq Tab.Er.Prt PO 10 meq BID@0700,1700 [facility] Administration Prochlorperazine Maleate 10 mg 02/25/21 07:00 02/25/21 05:55 Prochlorperazine 10 Mg Tab PO 10 mg DAILY@0700 [facility] Administration Senna 8.6 mg 02/25/21 07:00 02/25/21 05:56 Sennosides 8.6 Mg Tab PO 8.6 mg BID@0700,1700 [facility] Administration Sodium Biphosphate/Sodium Phosphate 133 ml 02/24/21 17:35 Na Phos,M-B/Na Phos,Di-Ba 133 Ml Enema RECTAL Q96H PRN Constipation Intake and Output 02/24/21 02/25/21 02/25/21 22:59 06:59 14:59 Intake Total 50 30 Balance 50 30 Intake: Intake, IV Titration 50 Amount cefTRIAXone 1 gm In 50 Sodium Chloride 0.9% 50 ml @ 100 mls/hr IVPB Q24HR [facility] Rx#:[id number] Oral 30 Other: # Voids 2 Weight 63.503 kg 02/24/21 13:13 02/24/21 13:13
[2021-02-25] MEDS: MORPHINE ORAL SOLN 10 MG/5 ML CUP PO SCH (11:19)
[2021-02-25] MEDS: AMIODARONE 200 MG TAB PO SCH ×2 (11:19→22:29)
[2021-02-25] MEDS: HEPARIN SOD,PORK IN 0.45% NACL 25,000 UNIT in 0.45% NACL 1 250ML.BAG IV SCH (11:21)
[2021-02-25] MEDS: ASPIRIN 81 MG PO SCH (11:32)
[2021-02-25 11:43] LABS: Glucose,Whole Blood 238 mg/dL (75-99)
[2021-02-25 12:29] LABS: Basophils # (A) 0 X 10*3/uL (0.00-0.10); Basophils % (A) 0 %; Eosinophils # (A) 0 X 10*3/uL (0.04-0.35); Eosinophils % (A) 0 %; HCT 36.6 % (37.2-46.3); HGB 10.2 g/dL (12.0-15.0); Lymphocytes # (A) 0.75 X 10*3/uL (0.90-5.00); Lymphocytes % (A) 12.4 %; MCH 20.9 pg (27.0-32.0); MCHC 27.9 g/dL (32.0-37.0); MCV 75.2 fL (80.0-97.0); Mean Platelet Volume 10.9 fL (9.5-12.2); Monocytes % (A) 3.3 %; Neutrophils # (A) 5.08 X 10*3/uL (1.80-7.70); Neutrophils % (A) 83.8 %; Platelet Count 351 X 10*3/uL (140-440); RBC 4.87 X 10*6/uL (4.10-5.20); WBC 6.06 X 10*3/uL (4.50-10.00)
[2021-02-25 13:25] LABS: African American GFR (CKD) 69.5 (60.0-200.0); BUN/Creat Ratio 27.78 Ratio (12.00-20.00); Carbon Dioxide >40.0 mmol/L (21.6-31.8); Chloride 88 mmol/L (96-109); Glucose 166 mg/dL (70-110); Potassium 3.5 mmol/L (3.5-5.5); Sodium 142 mmol/L (135-145)
[2021-02-25] MEDS: polyethylene glycoL 3350 17 GM POWD.PACK PO SCH (16:09)
[2021-02-25 16:45] LABS: Glucose,Whole Blood 244 mg/dL (75-99)
[2021-02-25 17:14] LABS: Ferritin 27.5 ng/mL (10.0-291.0)
[2021-02-25] MEDS ORDERED: INSULIN ASPART (NovoLOG) 100 UNIT/ML VIAL SQ SCH (17:30)
[2021-02-25 18:16] LABS: % Iron Saturation 5.54 (12.00-45.00)
[2021-02-25] MEDS: DILTIAZEM CD 240 MG CAP.ER.24H PO SCH (18:20)
--- NOTE | 2021-02-25 19:06 | PN ---
PROGRESS NOTE DATE OF SERVICE: 02/25/2021 This 80-year-old woman was admitted with chest pain, shortness of breath, is being closely monitored at this time. Cardiology following the patient closely. We are trying to obtain old records from elsewhere for previous procedures. No chest pain. No palpitations. No fever at this time. PHYSICAL EXAMINATION: Alert and oriented x2. Pulse is 102, blood pressure 105/50, respiration 16, temperature 98.2, pulse ox 98% on 4 L. HEENT: Conjunctivae normal. Oral mucosa moist. NECK: No jugular venous distention. No lymph node enlargement. CARDIOVASCULAR: S1, S2, muffled. No S3, no S4, RESPIRATORY: Diminished breath sounds at the bases. A few scattered rhonchi. ABDOMEN: Soft. NERVOUS SYSTEM: No focal deficits. LABS: CO2 is more than 40 and glucose noted. ASSESSMENT: 1. Left-sided chest pain, possible unstable angina, rule out coronary artery disease. 2. Chronic obstructive pulmonary disease, mild acute exacerbation with hypercarbia with acute hypoxic hypercarbic respiratory failure. 3. Acute urinary tract infection, present on admission. 4. Increased WBC. 5. Anemia, microcytic. 6. Elevated CO2. 7. Chronic hypoxic hypercarbic respiratory failure on home O2. 8. History of atrial fibrillation. 9. History of chest pain, angina. 10.History of CAD, CABG. 11.History of congestive heart failure. 12.History of chronic obstructive pulmonary disease. 13.Remote history of nicotine dependence. 14.FULL CODE. RECOMMENDATIONS: Recommend to continue current management and symptomatic treatment. Otherwise, at this time I would recommend repeat labs, follow closely with cardiology, obtain old reports if possible and further evaluation. Further recommendations to follow. Prognosis guarded. MMODL / IJN: [id number] /
[2021-02-25 20:25] LABS: Glucose,Whole Blood 226 mg/dL (75-99)
[2021-02-25] MEDS: INSULIN ASPART (NovoLOG) 100 UNIT/ML VIAL SQ SCH (20:51)
[2021-02-25] MEDS: ALPRAZolam 0.5 MG TAB PO SCH (20:51)
[2021-02-25] MEDS: HEPARIN SODIUM 1,000 UN/ML (10ML VL) IV PRN (22:48)
[2021-02-26] MEDS: IPRATROPIUM-ALBUTEROL 3 ML NEB INHALATION SCH ×6 (01:28→20:05)
[2021-02-26] MEDS: metOLazone 2.5 MG TAB PO SCH (05:45)
[2021-02-26] MEDS: methylPREDNISolone SOD SUCCI 40 MG/ML 1 ML VIAL IV SCH ×2 (05:46→12:27)
[2021-02-26 06:27] LABS: Anisocytosis Slight; Basophils % (A) 0 %; Eosinophils % (A) 0 %; HCT 34.6 % (34.0-46.0); HGB 10.1 gm/dL (11.4-16.0); Hypochromasia Marked; Lymphocytes % (A) 5 %; MCH 21.7 pg (25.0-35.0); MCHC 29.1 g/dL (31.0-37.0); MCV 74.4 fL (80.0-100.0); Mean Platelet Volume 6.9; Microcytosis Moderate; Monocytes # (A) 0.4 k/uL (0-1.0); Monocytes % (A) 2 %; Neutrophils # (A) 16.7 k/uL (1.3-7.7); Neutrophils % (A) 92 %; Platelet Count 404 k/uL (150-450); RBC 4.65 m/uL (3.80-5.40); RDW 17.6 % (11.5-15.5); WBC 18.1 k/uL (3.8-10.6)
[2021-02-26 06:30] LABS: African American GFR (CKD) 56 (>60 ml/min/1.73 sqM); Blood Urea Nitrogen 42 mg/dL (7-17); Calcium 9.5 mg/dL (8.4-10.2); Chloride 89 mmol/L (98-107); Glucose 158 mg/dL (74-99); Non-African American GFR(CKD) 48 (>60 ml/min/1.73 sqM); Potassium 3.8 mmol/L (3.5-5.1); Sodium 137 mmol/L (137-145)
[2021-02-26 06:32] LABS: INR 0.9 (<1.2); Partial Thromboplastin Time 39.4 sec (22.0-30.0); Prothrombin Time 10.2 sec (9.0-12.0)
[2021-02-26 06:37] LABS: Anion Gap 9 mmol/L
[2021-02-26 06:51] LABS: Carbon Dioxide 39 mmol/L (22-30)
[2021-02-26 07:28] LABS: Glucose,Whole Blood 164 mg/dL (75-99)
[2021-02-26] MEDS: SENNOSIDES 8.6 MG TAB PO SCH ×3 (08:06→17:31)
[2021-02-26] MEDS: DILTIAZEM CD 240 MG CAP.ER.24H PO SCH ×2 (08:06→17:31)
[2021-02-26] MEDS: POTASSIUM CHLORIDE ER 10 MEQ TAB.ER.PRT PO SCH ×2 (08:07→17:29)
[2021-02-26] MEDS: PANTOPRAZOLE 40 MG TABLET PO SCH ×2 (08:07→17:29)
[2021-02-26] MEDS: AMIODARONE 200 MG TAB PO SCH ×2 (08:07→08:08)
[2021-02-26] MEDS: ASPIRIN 81 MG PO SCH (08:07)
[2021-02-26] MEDS: PROCHLORPERAZINE 10 MG TAB PO SCH (08:08)
[2021-02-26] MEDS: INSULIN ASPART (NovoLOG) 100 UNIT/ML VIAL SQ SCH ×4 (08:09→21:29)
[2021-02-26] MEDS: HEPARIN SODIUM,PORCINE/PF 5,000 UNIT/0.5 ML SYRINGE SQ SCH ×2 (08:09→08:27)
[2021-02-26] MEDS ORDERED: ATORVASTATIN 80 MG TAB PO STA (09:27)
[2021-02-26] MEDS ORDERED: ALPRAZolam 0.25 MG TAB PO PRN (09:27)
[2021-02-26] MEDS: FUROSEMIDE 40 MG TAB PO SCH ×2 (09:47→09:58)
[2021-02-26] MEDS: MORPHINE ORAL SOLN 10 MG/5 ML CUP PO SCH (10:38)
[2021-02-26] MEDS: HEPARIN SODIUM 1,000 UN/ML (10ML VL) IV PRN (10:58)
--- NOTE | 2021-02-26 11:03 | P.PN ---
Subjective Patient is a pleasant 80-year-old female with history of COPD on 4 L home oxygen, coronary artery disease status post 4 vessel CABG 1999, hypertension, hyperlipidemia, persistent atrial fibrillation with attempted cardioversion in 2019, arthritis, anemia. She used to follow with cnc lathe programmer at [facility] in [place], but states she has not followed with a cnc lathe programmer in about 8-10 years. Patient presents to the emergency department secondary to chest pain for approximately one week. On admission, she stated that it felt similar to her prior CABG and which she gets fairly often which has been fairly constant over the last 1 week. On presentation with she was found to be in A. fib with mild RVR, heart rate since admission have been 90s to 110s. She was placed on her home Cardizem 180 mg twice a day as well as her home Lasix 80 mg daily and given steroids. troponin negative 3, proBNP 1190. Chest x-ray shows bilateral patchy infiltrates versus pulmonary edema Records obtained from [facility]: Patient was previously hospitalized at [facility] in [place] in December-January 2019. She presented with shortness of breath and palpitations she was found to be in atrial fibrillation with RVR. She was started on IV Cardizem drip. An echo was performed which showed an EF 55-60%. She underwent a nuclear stress test on 12/29/2019 which revealed no reversible ischemia, small area of possible coronary infarct, LVEF 67%, no wall motion abnormality. She also underwent CHICA and cardioversion which was successful however within 2 hours she converted back to atrial fibrillation with RVR. Her CHICA revealed an LVEF 5560 percent, mildly dilated LA, no evidence of pericardial effusion, mild aortic valve sclerosis. She was transitioned to Cardizem 180 mg twice a day and bisoprolol 5 mg daily. No Cardiac catheterization or CABG report was sent over. Patient seen and examined at bedside. No acute distress, she continues to have chest pressure. Some shortness of breath. Telemetry reviewed patient continues to be in atrial fibrillation with better controlled ventricular rates. Laboratory data review WBC 18.1, hemoglobin 10.1, platelets 404, sodium 137, potassium 3.8, BUN 42, serum creatinine 1.08 PHYSICAL EXAMINATION Blood pressure 110/65, heart rate 86, afebrile, maintaining oxygen saturations on 4 L nasal cannula. CONSTITUTIONAL: No apparent distress, frail on O2 HEENT: Neck Supple. No JVD. No carotid bruit. CHEST EXAMINATION: Lungs are clear to auscultation. No chest wall tenderness is noted on palpation or with deep breathing. HEART EXAMINATION: Irregular rate and rhythm. S1, S2 heard. No murmurs, gallops or rub. ABDOMEN: Soft, nontender. Positive bowel sounds. EXTREMITIES: 2+ peripheral pulses, no lower extremity edema and no calf tenderness. NEUROLOGIC EXAMINATION: Patient is awake, alert and oriented x3. ASSESSMENT Unstable angina Coronary artery disease status post 4 vessel CABG in 1999 Acute on chronic respiratory failure component of chronic COPD however additional component of angina Persistent atrial fibrillation with mild RVR - Patient states she was taken off Eliquis, but unsure why. She does have history of anemia Chronic diastolic heart failure, appears euvolemic COPD on home O2 Hypertension Hyperlipidemia Anemia, likely iron deficiency and has been off of any anticoagulation or anti platelets PLAN -Obtain 2D echocardiogram -Patient does have significant angina and therefore discussed recommendations for heart catheterization. -Plan for cardiac catheterization on 02/[address] Lipscomb. -I have discussed the risks, benefits and alternative therapies for the above- mentioned procedure and for both sedation/analgesia as well as necessary blood product administration, if indicated, as they pertain to this patient. The patient has indicated understanding and acceptance of the risks and procedures discussed. Questions have been answered appropriately and he is agreeable to move forward with the above-stated procedure. -NPO after midnight -We will attempt to obtain [facility] -Continue heparin drip, aspirin, statin -Amiodarone 400mg BID (started 02/25) -Cardizem 240mg BID -Further recommendations based on clinical course Objective - Vital Signs Vital signs: Vital Signs Temp 98 F 02/26/21 07:00 Pulse 88 02/26/21 08:32 Resp 18 02/26/21 07:00 BP 110/65 02/26/21 07:00 Pulse Ox 93 L 02/26/21 07:00 Intake & Output 02/25/21 02/26/21 02/26/21 18:59 06:59 18:59 Intake Total 85.852 Balance 85.852 Intake: Intake, IV Titration 85.852 Amount Heparin Sod,Pork in 0.45% 85.852 NaCl 25,000 unit In 0.45 % NaCl 1 250ml.bag @ 12 UNITS/KG/HR 7.62 mls/hr IV .Q24H [facility] Rx#: [id number] Other: Voiding Method Toilet Toilet # Voids 3 1 # Bowel Movements 0 - Labs CBC & Chem 7: 02/26/21 05:42 02/26/21 05:42 Labs: Abnormal Lab Results - Last 24 Hours (Table) 02/25/21 02/25/21 02/25/21 Range/Units 06:50 06:50 06:50 WBC (3.8-10.6) k/uL Hgb 10.2 L (12.0-15.0) g/dL Hct 36.6 L (37.2-46.3) % MCV 75.2 L (80.0-97.0) fL MCH 20.9 L (27.0-32.0) pg MCHC 27.9 L (32.0-37.0) g/dL RDW 19.0 H (11.5-14.5) % Neutrophils # (1.3-7.7) k/uL Lymphocytes # 0.75 L (0.90-5.00) X 10*3/uL Eosinophils # 0 L (0.04-0.35) X 10*3/uL APTT (22.0-30.0) sec Chloride 88 L (96-109) mmol/L Carbon Dioxide >40.0 H* (21.6-31.8) mmol/L BUN (7-17) mg/dL Creatinine (0.52-1.04) mg/dL BUN/Creatinine Ratio 27.78 H (12.00-20.00) Ratio Glucose 166 H (70-110) mg/dL POC Glucose (mg/dL) (75-99) mg/dL Iron 21 L (50-170) ug/dL % Saturation 5.54 L (12.00-45.00) 02/25/21 02/25/21 02/25/21 Range/Units 11:41 16:42 20:24 WBC (3.8-10.6) k/uL Hgb (12.0-15.0) g/dL Hct (37.2-46.3) % MCV (80.0-97.0) fL MCH (27.0-32.0) pg MCHC (32.0-37.0) g/dL RDW (11.5-14.5) % Neutrophils # (1.3-7.7) k/uL Lymphocytes # (0.90-5.00) X 10*3/uL Eosinophils # (0.04-0.35) X 10*3/uL APTT (22.0-30.0) sec Chloride (96-109) mmol/L Carbon Dioxide (21.6-31.8) mmol/L BUN (7-17) mg/dL Creatinine (0.52-1.04) mg/dL BUN/Creatinine Ratio (12.00-20.00) Ratio Glucose (70-110) mg/dL POC Glucose (mg/dL) 238 H 244 H 226 H (75-99) mg/dL Iron (50-170) ug/dL % Saturation (12.00-45.00) 02/26/21 02/26/21 02/26/21 Range/Units 05:42 05:42 05:42 WBC 18.1 H (3.8-10.6) k/uL Hgb 10.1 L (12.0-15.0) g/dL Hct (37.2-46.3) % MCV 74.4 L (80.0-97.0) fL MCH 21.7 L (27.0-32.0) pg MCHC 29.1 L (32.0-37.0) g/dL RDW 17.6 H (11.5-14.5) % Neutrophils # 16.7 H (1.3-7.7) k/uL Lymphocytes # (0.90-5.00) X 10*3/uL Eosinophils # (0.04-0.35) X 10*3/uL APTT 39.4 H (22.0-30.0) sec Chloride 89 L (96-109) mmol/L Carbon Dioxide 39 H (21.6-31.8) mmol/L BUN 42 H (7-17) mg/dL Creatinine 1.08 H (0.52-1.04) mg/dL BUN/Creatinine Ratio (12.00-20.00) Ratio Glucose 158 H (70-110) mg/dL POC Glucose (mg/dL) (75-99) mg/dL Iron (50-170) ug/dL % Saturation (12.00-45.00) 02/26/21 Range/Units 07:27 WBC (3.8-10.6) k/uL Hgb (12.0-15.0) g/dL Hct (37.2-46.3) % MCV (80.0-97.0) fL MCH (27.0-32.0) pg MCHC (32.0-37.0) g/dL RDW (11.5-14.5) % Neutrophils # (1.3-7.7) k/uL Lymphocytes # (0.90-5.00) X 10*3/uL Eosinophils # (0.04-0.35) X 10*3/uL APTT (22.0-30.0) sec Chloride (96-109) mmol/L Carbon Dioxide (21.6-31.8) mmol/L BUN (7-17) mg/dL Creatinine (0.52-1.04) mg/dL BUN/Creatinine Ratio (12.00-20.00) Ratio Glucose (70-110) mg/dL POC Glucose (mg/dL) 164 H (75-99) mg/dL Iron (50-170) ug/dL % Saturation (12.00-45.00) Microbiology - Last 24 Hours (Table) 02/24/21 13:13 Urine Culture - Final Urine,Voided
[2021-02-26 12:02] LABS: Glucose,Whole Blood 283 mg/dL (75-99)
[2021-02-26] MEDS: polyethylene glycoL 3350 17 GM POWD.PACK PO SCH (12:25)
[2021-02-26] MEDS: HEPARIN SOD,PORK IN 0.45% NACL 25,000 UNIT in 0.45% NACL 1 250ML.BAG IV SCH (12:31)
[2021-02-26] MEDS ORDERED: IPRATROPIUM-ALBUTEROL 3 ML NEB INHALATION PRN (12:47)
--- NOTE | 2021-02-26 13:54 | P.CNPUL ---
History of Present Illness Consult date: 02/26/21 Requesting physician: Israel Dobbs Reason for consult: dyspnea, chest pain, COPD, hypoxemia Chief complaint: Chest pain. History of present illness: Pulmonary consult dated 02/26/2021. 80-year-old female who is admitted to the hospital with complaints of chest discomfort, and nausea. The chest pain was substernal in nature. She was seen in the emergency department on February 24. The patient was admitted to the [address] [place] [address]. We were asked to see the patient is a patient has been previously diagnosed with COPD. She apparently has never seen a lung doctor in the past. The patient apparently smoked for 40 years at about a pack or pack and a half a day. Anyway, the patient does not take any breathing medications at home on a regular basis. She does use oxygen at 3-4 L/m . The patient was seen by cardiology. Her primary issue is that of chest discomfort. She is chronica lly short of breath with any activity. She's pretty much at baseline though. She denies any cough, wheezing, phlegm production, chest congestion, fever, or chills. The patient in addition to COPD, has a history of CAD, prior bypass grafting, coronary disease, and heart failure. Family history is negative for cardiac disease although apparently there is a family history of kidney issues. White count 18.1, hemoglobin 10.1, hematocrit 34.6, and platelet count 404,000. PT and INR are normal. PTT is 44.8. Sodium 137, potassium 3.8, chlorides 89, CO2 39, anion gap 9, BUN 42, and creatinine 1.08. Based on the bicarbonate concentration of 39, the patient is likely a CO2 retainer, with a baseline CO2 of 68, plus or minus 2 mmHg. Chest x-ray shows some cardiomegaly, and some patchy atelectatic changes in both lungs. Review of Systems REVIEW OF SYSTEMS: CONSTITUTIONAL: [Negative.] NEUROLOGIC: [ Negative.] HEENT: [ Negative.] CARDIAC: Chest pain, sharp in nature, primarily in the substernal region. PULMONARY: Chronic shortness of breath on exertion. GI: Nausea, without emesis. : [Negative.] RHEUMATOLOGIC: [ Negative.] IMMUNOLOGIC: [ Negative.] ENDOCRINE: [Negative. ] DERMATOLOGIC: [Negative.] Past Medical History Past Medical History: Atrial Fibrillation, Coronary Artery Disease (CAD), Chest Pain / Angina, Heart Failure, COPD, Osteoarthritis (OA) Additional Past Medical History / Comment(s): cabg, HF, COPD History of Any Multi-Drug Resistant Organisms: None Reported Past Surgical History: Adenoidectomy, Cholecystectomy, Coronary Bypass/CABG, Tonsillectomy Past Anesthesia/Blood Transfusion Reactions: No Reported Reaction Past Psychological History: No Psychological Hx Reported Smoking Status: Former smoker Past Alcohol Use History: None Reported Past Drug Use History: None Reported Medications and Allergies Home Medications Medication Instructions Recorded Confirmed Type ALPRAZolam [Xanax] 0.5 mg PO HS@2100 02/24/21 02/24/21 History Acetaminophen Tab [Tylenol Tab] 1,000 mg PO BID PRN 02/24/21 02/24/21 History Acetaminophen [Tylenol] 1,000 mg PO DAILY@1500 02/24/21 02/24/21 History Albuterol Nebulized [Ventolin 2.5 mg INHALATION RT-BID@0730,1600 02/24/21 02/24/21 History Nebulized] Albuterol Nebulized [Ventolin 2.5 mg INHALATION RT-Q4H PRN 02/24/21 02/24/21 History Nebulized] Diltiazem HCl [Diltiazem HCl 24Hr 180 mg PO BID@0700,1700 02/24/21 02/24/21 History ER (XR)] Fluticasone Nasal [employer] [Flonase 1 spray EA NOSTRIL Q12H PRN 02/24/21 02/24/21 History Nasal [employer]] Furosemide [Lasix] 80 mg PO DAILY@0700 02/24/21 02/24/21 History MORPHINE ORAL MANJULA CONC 20mg/mL 5 mg PO Q2H PRN 02/24/21 02/24/21 History [Roxanol Oral Soln Conc 20MG/ML] MORPHINE ORAL MANJULA CONC 20mg/mL 10 mg PO DAILY@1030 02/24/21 02/24/21 History [Roxanol Oral Soln Conc 20MG/ML] MORPHINE ORAL MANJULA CONC 20mg/mL 10 mg PO Q2H PRN 02/24/21 02/24/21 History [Roxanol Oral Soln Conc 20MG/ML] Mag Hydrox/Aluminum Hyd/Simeth 10 ml PO Q4H PRN 02/24/21 02/24/21 History [Mylanta Maximum Strength Liq] Magnesium Hydroxide [Milk of 2,400 mg PO Q48H PRN 02/24/21 02/24/21 History Magnesia] Meloxicam 7.5 mg PO DAILY@0700 02/24/21 02/24/21 History Na Phos,M-B/Na Phos,Di-Ba [Fleet 133 ml RECTAL Q96H PRN 02/24/21 02/24/21 History Adult] Nitroglycerin Sl Tabs [Nitrostat] 0.4 mg SUBLINGUAL Q5M PRN 02/24/21 02/24/21 History Omeprazole [PriLOSEC] 20 mg PO BID@0530,1830 02/24/21 02/24/21 History Polyethylene Glycol 3350 [Miralax] 17 gm PO DAILY@1430 02/24/21 02/24/21 History Potassium Chloride ER [K-Dur 10] 10 meq PO BID@0700,1700 02/24/21 02/24/21 History Prochlorperazine [Compazine] 10 mg PO DAILY@0700 02/24/21 02/24/21 History Prochlorperazine [Compazine] 10 mg PO Q6H PRN 02/24/21 02/24/21 History Sennosides/Docusate Sodium [Senna 1 cap PO BID@0700,1700 02/24/21 02/24/21 Histo ry Plus 8.6-50 mg Softgel] bisacodyL [Dulcolax] 10 mg RECTAL Q72H PRN 02/24/21 02/24/21 History metOLazone [Zaroxolyn] 2.5 mg PO DAILY@0530 02/24/21 02/24/21 History Allergies Allergy/AdvReac Type Severity Reaction Status Date / Time amoxicillin [From Augmentin] Allergy Rash/Hives Verified 02/24/21 14:59 clavulanic acid Allergy Rash/Hives Verified 02/24/21 14:59 [From Augmentin] codeine AdvReac Itching Verified 02/24/21 14:59 Physical Exam Osteopathic Statement: *. No significant issues noted on an osteopathic structural exam other than those noted in the History and Physical/Consult. Vitals: Vital Signs Temp Pulse Pulse Resp BP Pulse Ox 02/26/21 12:17 84 02/26/21 12:02 76 02/26/21 08:32 88 02/26/21 08:22 88 02/26/21 07:00 98 F 86 18 110/65 93 L 02/26/21 02:00 97.9 F 88 18 115/77 92 L 02/25/21 20:39 96 02/25/21 20:24 96 02/25/21 19:29 16 02/25/21 19:26 98.4 F 95 18 106/59 93 L 02/25/21 15:59 104 H 02/25/21 15:42 100 02/25/21 13:50 98.3 F 102 H 16 105/55 93 L Intake and Output 02/25/21 02/26/21 02/26/21 22:59 06:59 14:59 Intake Total 85.852 135.498 Balance 85.852 135.498 Intake: Intake, IV Titration 85.852 135.498 Amount Heparin Sod,Pork in 0.45% 85.852 135.498 NaCl 25,000 unit In 0.45 % NaCl 1 250ml.bag @ 12 UNITS/KG/HR 7.62 mls/hr IV .Q24H [facility] Rx#: [id number] Other: Voiding Method Toilet Toilet Toilet # Voids 1 1 1 No acute distress, oriented 3. No acute respiratory distress, audible whee zing, use of accessory muscles, or conversational dyspnea. The patient's currently on 3 L nasal cannula with adequate saturations. HEENT examination is grossly unremarkable. Neck supple. Full range of motion. No adenopathy thyromegaly or neck vein distention. Cardiovascular examination reveals regular rhythm rate. S1-S2 normal. No S3 or S4. No discernible murmur noted. Heart rate is 84 bpm. Lungs reveal severely diminished breath sounds throughout. Mild to moderate scattered rhonchi are noted. Fine expiratory wheezes are noted as well. No crackles. Breath sounds equal bilaterally.. Abdomen soft bowel sounds are heard. No masses or tenderness. Extremities are intact. No cyanosis clubbing or edema. Skin is without rash or lesion. Neurologic examination is brief but nonfocal. Results - Laboratory Findings CBC and BMP: 02/26/21 05:42 02/26/21 05:42 PT/INR, D-dimer PT 10.2 sec (9.0-12.0) 02/26/21 05:42 INR 0.9 (<1.2) 02/26/21 05:42 Abnormal lab findings: Abnormal Labs 02/24/21 02/24/21 02/24/21 13:13 13:13 13:13 WBC 11.0 H Hgb 10.5 L Hct MCV 74.8 L MCH 21.9 L MCHC 29.3 L RDW 17.3 H Neutrophils # Lymphocytes # Monocytes # 1.1 H Eosinophils # APTT 20.8 L Chloride Carbon Dioxide BUN Creatinine BUN/Creatinine Ratio Glucose POC Glucose (mg/dL) Iron % Saturation AST ALT Alkaline Phosphatase Ur Leukocyte Esterase Large H Urine WBC 27 H Urine Mucus Rare H 02/24/21 02/25/21 02/25/21 13:13 06:50 06:50 WBC Hgb 10.2 L Hct 36.6 L MCV 75.2 L MCH 20.9 L MCHC 27.9 L RDW 19.0 H Neutrophils # Lymphocytes # 0.75 L Monocytes # Eosinophils # 0 L APTT Chloride 84 L 88 L Carbon Dioxide 44 H* >40.0 H* BUN 26 H Creatinine BUN/Creatinine Ratio 27.78 H Glucose 109 H 166 H POC Glucose (mg/dL) Iron % Saturation AST 43 H ALT 54 H Alkaline Phosphatase 173 H Ur Leukocyte Esterase Urine WBC Urine Mucus 02/25/21 02/25/21 02/25/21 06:50 07:29 11:41 WBC Hgb Hct MCV MCH MCHC RDW Neutrophils # Lymphocytes # Monocytes # Eosinophils # APTT Chloride Carbon Dioxide BUN Creatinine BUN/Creatinine Ratio Glucose POC Glucose (mg/dL) 171 H 238 H Iron 21 L % Saturation 5.54 L AST ALT Alkaline Phosphatase Ur Leukocyte Esterase Urine WBC Urine Mucus 02/25/21 02/25/21 02/26/21 16:42 20:24 05:42 WBC Hgb Hct MCV MCH MCHC RDW Neutrophils # Lymphocytes # Monocytes # Eosinophils # APTT Chloride 89 L Carbon Dioxide 39 H BUN 42 H Creatinine 1.08 H BUN/Creatinine Ratio Glucose 158 H POC Glucose (mg/dL) 244 H 226 H Iron % Saturation AST ALT Alkaline Phosphatase Ur Leukocyte Esterase Urine WBC Urine Mucus 02/26/21 02/26/21 02/26/21 05:42 05:42 07:27 WBC 18.1 H Hgb 10.1 L Hct MCV 74.4 L MCH 21.7 L MCHC 29.1 L RDW 17.6 H Neutrophils # 16.7 H Lymphocytes # Monocytes # Eosinophils # APTT 39.4 H Chloride Carbon Dioxide BUN Creatinine BUN/Creatinine Ratio Glucose POC Glucose (mg/dL) 164 H Iron % Saturation AST ALT Alkaline Phosphatase Ur Leukocyte Esterase Urine WBC Urine Mucus 02/26/21 02/26/21 11:04 12:01 WBC Hgb Hct MCV MCH MCHC RDW Neutrophils # Lymphocytes # Monocytes # Eosinophils # APTT 44.8 H Chloride Carbon Dioxide BUN Creatinine BUN/Creatinine Ratio Glucose POC Glucose (mg/dL) 283 H Iron % Saturation AST ALT Alkaline Phosphatase Ur Leukocyte Esterase Urine WBC Urine Mucus - Diagnostic Findings Chest x-ray: image reviewed Assessment and Plan Assessment: Chest pain, currently being evaluated by cardiology. Chronic obstructive pulmonary disease, likely quite severe, as the patient is a CO2 retainer, with a calculated expected PaCO2 of 68, plus or minus 2 mmHg. Previous history of 40 years of tobacco use. History of CAD, status post CABG. History of heart failure. History of atrial fibrillation. History of hypertension. History of chronic anemia. Plan: Plan dated 02/26/2021. The patient's medications have been adjusted accordingly. She is currently on Symbicort 160/4.5, 2 puffs twice a day. In addition, the patient is on DuoNeb nebs, 4 times a day and when necessary. The patient does not need corticosteroids at this time. Her cardiac symptoms are currently being evaluated by the cardiology team. We will continue to follow make recommendations where appropriate. Additional recommendations and suggestions are forthcoming. The patient with deftly benefit from an outpatient pulmonary evaluation with complete pulmonary function test, when she is discharged. Time with Patient: Greater than 30
[2021-02-26] MEDS ORDERED: SODIUM CHLORIDE 0.9% 1,000 ML in EMPTY BAG 1 BAG IV ONE ×2 (15:00→19:00)
--- NOTE | 2021-02-26 16:07 | PN ---
PROGRESS NOTE DATE OF SERVICE: 02/26/2021 This 80-year-old woman who was admitted with left-sided chest pain, scheduled for cardiac cath tomorrow by Cardiology. No chest pain. No palpitations. No fever. Pulmonary is also evaluating the patient for COPD. PHYSICAL EXAMINATION: Alert and oriented times three. Pulse is 76, blood pressure 120/64. Respirations 18, temperature 98 degrees, pulse ox 98% on 4 L. HEENT: Conjunctivae normal. NECK: No JVD. CARDIOVASCULAR: S1, S2 muffled. RESPIRATIONS: Breath sounds diminished in the bases. A few scattered rhonchi. ABDOMEN: Soft. Nontender. NERVOUS SYSTEM: No focal deficits. LABS: WBC 18.1, creatinine is 1.08, glucose noted. ASSESSMENT: 1. Left-sided chest pain possible unstable angina. Rule out coronary artery disease. 2. chronic obstructive pulmonary disease, mild acute exacerbation with hypercarbia and acute hypoxic hypercarbic respiratory failure. 3. Acute urinary tract infection, present on admission. 4. Increased WBC. 5. Anemia, microcytic. 6. Elevated CO2. 7. Chronic hypoxic hypercarbic respiratory failure on home O2. 8. History of atrial fibrillation. 9. History of chest pain, angina. 10.History of coronary artery disease, coronary artery bypass grafting. 11.History of congestive heart failure. 12.History of chronic obstructive pulmonary disease. 13.Remote history of nicotine dependence. 14.FULL CODE. RECOMMENDATION AND DISCUSSION: Continue current medications, management and symptomatic treatment. Otherwise continue the bronchodilators and cardiac medications. Cardiac cath per Cardiology. Guarded prognosis. Further recommendations to follow. MMODL / IJN: [id number] /
[2021-02-26 17:21] LABS: Glucose,Whole Blood 162 mg/dL (75-99)
[2021-02-26] MEDS: SYMBICORT 160-4.5 MCG INHALER INHALATION SCH (20:06)
[2021-02-26 21:03] LABS: Glucose,Whole Blood 247 mg/dL (75-99)
[2021-02-26] MEDS: ALPRAZolam 0.5 MG TAB PO SCH (21:29)
[2021-02-27 05:41] LABS: Anisocytosis Slight; HGB 9.7 gm/dL (11.4-16.0); Hypochromasia Marked; MCH 22.3 pg (25.0-35.0); MCHC 30.1 g/dL (31.0-37.0); MCV 74.1 fL (80.0-100.0); Mean Platelet Volume 7.3; Microcytosis Moderate; Platelet Count 408 k/uL (150-450); RBC 4.32 m/uL (3.80-5.40); RDW 17.7 % (11.5-15.5); WBC 18.2 k/uL (3.8-10.6)
[2021-02-27 06:05] LABS: African American GFR (CKD) 60 (>60 ml/min/1.73 sqM); Blood Urea Nitrogen 51 mg/dL (7-17); Calcium 9.1 mg/dL (8.4-10.2); Chloride 90 mmol/L (98-107); Glucose 149 mg/dL (74-99); Non-African American GFR(CKD) 52 (>60 ml/min/1.73 sqM); Potassium 3.8 mmol/L (3.5-5.1); Sodium 137 mmol/L (137-145)
[2021-02-27 06:09] LABS: Glucose,Whole Blood 158 mg/dL (75-99)
[2021-02-27 06:11] LABS: Anion Gap 10 mmol/L; Carbon Dioxide 37 mmol/L (22-30)
--- NOTE | 2021-02-27 06:52 | P.PN ---
Subjective Progress Note Date: 02/27/21 Principal diagnosis: Chest pain. Pulmonary consult dated 02/26/2021. 80-year-old female who is admitted to the hospital with complaints of chest discomfort, and nausea. The chest pain was substernal in nature. She was seen in the emergency department on February 24. The patient was admitted to the [address] [place] [address]. We were asked to see the patient is a patient has been previously diagnosed with COPD. She apparently has never seen a lung doctor in the past. The patient apparently smoked for 40 years at about a pack or pack and a half a day. Anyway, the patient does not take any breathing medications at home on a regular basis. She does use oxygen at 3-4 L/m . The patient was seen by cardiology. Her primary issue is that of chest discomfort. She is chronic ally short of breath with any activity. She's pretty much at baseline though. She denies any cough, wheezing, phlegm production, chest congestion, fever, or chills. The patient in addition to COPD, has a history of CAD, prior bypass grafting, coronary disease, and heart failure. Family history is negative for cardiac disease although apparently there is a family history of kidney issues. White count 18.1, hemoglobin 10.1, hematocrit 34.6, and platelet count 404,000. PT and INR are normal. PTT is 44.8. Sodium 137, potassium 3.8, chlorides 89, CO2 39, anion gap 9, BUN 42, and creatinine 1.08. Based on the bicarbonate concentration of 39, the patient is likely a CO2 retainer, with a baseline CO2 of 68, plus or minus 2 mmHg. Chest x-ray shows some cardiomegaly, and some patchy atelectatic changes in both lungs. Progress note dated 02/27/2021. The patient was admitted with a diagnosis of chest pain. The patient is to have a cardiac catheterization today with Dr. Lipscomb. The patient most likely has underlying significant COPD, based on her smoking history, examination, sympt oms, and the fact, that she is likely a CO2 retainer. The patient will need an outpatient evaluation including complete pulmonary function tests, and a 6 minute walk distance. Currently, she is resting comfortably. White count 18.2, hemoglobin 9.7, hematocrit 32 and platelet count 488,000. PTT is 50.3. Sodium and potassium are normal. Chloride 90, CO2 37, anion gap 10, BUN 51, and creatinine 1.02. Chest x-ray from the was already reviewed. Objective - Vital Signs Vital signs: Vital Signs Temp 97.5 F L 02/27/21 02:18 Pulse 82 02/27/21 02:18 Resp 16 02/27/21 02:18 BP 117/71 02/27/21 02:18 Pulse Ox 97 02/27/21 02:18 Intake & Output 02/26/21 02/26/21 02/27/21 06:59 18:59 06:59 Intake Total 85.852 253.498 0 Balance 85.852 253.498 0 Intake: Intake, IV Titration 85.852 135.498 Amount Heparin Sod,Pork in 0.45% 85.852 135.498 NaCl 25,000 unit In 0.45 % NaCl 1 250ml.bag @ 12 UNITS/KG/HR 7.62 mls/hr IV .Q24H [facility] Rx#: [id number] Oral 118 0 Other: Voiding Method Toilet Toilet Toilet # Voids 1 1 # Bowel Movements 0 - Exam No acute distress, oriented 3. No acute respiratory distress, audible wheezing, use of accessory muscles, or conversational dyspnea. The patient's currently on 4 L nasal cannula with adequate saturations. HEENT examination is grossly unremarkable. Neck supple. Full range of motion. No adenopathy thyromegaly or neck vein distention. Cardiovascular examination reveals regular rhythm rate. S1-S2 normal. No S3 or S4. No discernible murmur noted. Heart rate is 82 bpm. Lungs reveal severely diminished breath sounds throughout. Mild to moderate scattered rhonchi are noted. Fine expiratory wheezes are noted as well. No crackles. Breath sounds equal bilaterally.. Abdomen soft bowel sounds are heard. No masses or tenderness. Extremities are intact. No cyanosis clubbing or edema. Skin is without rash or lesion. Neurologic examination is brief but nonfocal. - Labs CBC & Chem 7: 02/27/21 05:06 02/27/21 05:06 Labs: Abnormal Lab Results - Last 24 Hours (Table) 02/26/21 02/26/21 02/26/21 Range/Units 05:42 07:27 11:04 WBC (3.8-10.6) k/uL Hgb (11.4-16.0) gm/dL Hct (34.0-46.0) % MCV (80.0-100.0) fL MCH (25.0-35.0) pg MCHC (31.0-37.0) g/dL RDW (11.5-15.5) % APTT 44.8 H (22.0-30.0) sec Chloride 89 L (98-107) mmol/L Carbon Dioxide 39 H (22-30) mmol/L BUN 42 H (7-17) mg/dL Creatinine 1.08 H (0.52-1.04) mg/dL Glucose 158 H (74-99) mg/dL POC Glucose (mg/dL) 164 H (75-99) mg/dL 02/26/21 02/26/21 02/26/21 Range/Units 12:01 17:20 21:02 WBC (3.8-10.6) k/uL Hgb (11.4-16.0) gm/dL Hct (34.0-46.0) % MCV (80.0-100.0) fL MCH (25.0-35.0) pg MCHC (31.0-37.0) g/dL RDW (11.5-15.5) % APTT (22.0-30.0) sec Chloride (98-107) mmol/L Carbon Dioxide (22-30) mmol/L BUN (7-17) mg/dL Creatinine (0.52-1.04) mg/dL Glucose (74-99) mg/dL POC Glucose (mg/dL) 283 H 162 H 247 H (75-99) mg/dL 02/27/21 02/27/21 02/27/21 Range/Units 05:06 05:06 05:06 WBC 18.2 H (3.8-10.6) k/uL Hgb 9.7 L (11.4-16.0) gm/dL Hct 32.0 L (34.0-46.0) % MCV 74.1 L (80.0-100.0) fL MCH 22.3 L (25.0-35.0) pg MCHC 30.1 L (31.0-37.0) g/dL RDW 17.7 H (11.5-15.5) % APTT 50.3 H (22.0-30.0) sec Chloride 90 L (98-107) mmol/L Carbon Dioxide 37 H (22-30) mmol/L BUN 51 H (7-17) mg/dL Creatinine (0.52-1.04) mg/dL Glucose 149 H (74-99) mg/dL POC Glucose (mg/dL) (75-99) mg/dL 02/27/21 Range/Units 06:07 WBC (3.8-10.6) k/uL Hgb (11.4-16.0) gm/dL Hct (34.0-46.0) % MCV (80.0-100.0) fL MCH (25.0-35.0) pg MCHC (31.0-37.0) g/dL RDW (11.5-15.5) % APTT (22.0-30.0) sec Chloride (98-107) mmol/L Carbon Dioxide (22-30) mmol/L BUN (7-17) mg/dL Creatinine (0.52-1.04) mg/dL Glucose (74-99) mg/dL POC Glucose (mg/dL) 158 H (75-99) mg/dL Assessment and Plan Assessment: Chest pain, currently being evaluated by cardiology, with cardiac catheterization planned for February 27. Chronic obstructive pulmonary disease, likely quite severe, as the patient is a CO2 retainer, with a calculated expected PaCO2 of 68, plus or minus 2 mmHg. Previous history of 40 years of tobacco use. History of CAD, status post CABG. History of heart failure. History of atrial fibrillation. History of hypertension. History of chronic anemia. Plan: Plan dated 02/26/2021. The patient's medications have been adjusted accordingly. She is currently on Symbicort 160/4.5, 2 puffs twice a day. In addition, the patient is on DuoNeb nebs, 4 times a day and when necessary. The patient does not need corticosteroids at this time. Her cardiac symptoms are currently being evaluated by the cardiology team. We will continue to follow make recommendations where appropriate. Additional recommendations and suggestions are forthcoming. The patient with deftly benefit from an outpatient pulmonary evaluation with complete pulmonary function test, when she is discharged. Plan dated 02/27/2021. The patient is scheduled to have a cardiac catheterization today. She remains on saline at 20 mL an hour, and IV heparin. The patient also remains on 4 L nasal cannula. Once she is discharged from the hospital, she would need a thorough pulmonary evaluation. This will include a follow-up evaluation in my office, as well as a complete pulmonary function test, in 6 minute walk distance. Additional recommendations and suggestions are forthcoming. We will continue to follow make recommendations where appropriate. Time with Patient: Less than 30
[2021-02-27] MEDS ORDERED: HEPARIN SODIUM,PORCINE 2,500 UNIT in SODIUM CHLORIDE 0.9% 250 ML IRRIGATION PRN (07:00)
[2021-02-27] MEDS ORDERED: HEPARIN SODIUM,PORCINE 10,000 UNIT in SODIUM CHLORIDE 0.9% 1,000 ML IRRIGATION PRN (07:00)
[2021-02-27] MEDS: SYMBICORT 160-4.5 MCG INHALER INHALATION SCH ×2 (07:20→19:33)
[2021-02-27] MEDS: IPRATROPIUM-ALBUTEROL 3 ML NEB INHALATION SCH ×3 (07:20→19:34)
[2021-02-27] MEDS: POTASSIUM CHLORIDE ER 10 MEQ TAB.ER.PRT PO SCH ×3 (08:34→16:26)
[2021-02-27] MEDS: DILTIAZEM CD 240 MG CAP.ER.24H PO SCH ×2 (08:36→16:26)
[2021-02-27] MEDS: ASPIRIN 81 MG PO SCH ×2 (08:36→11:11)
[2021-02-27] MEDS: AMIODARONE 200 MG TAB PO SCH ×2 (08:37→21:01)
[2021-02-27] MEDS: PROCHLORPERAZINE 10 MG TAB PO SCH ×2 (08:38→11:12)
[2021-02-27] MEDS: INSULIN ASPART (NovoLOG) 100 UNIT/ML VIAL SQ SCH ×4 (08:38→20:53)
[2021-02-27] MEDS: PANTOPRAZOLE 40 MG TABLET PO SCH ×2 (08:39→16:38)
[2021-02-27] MEDS: SENNOSIDES 8.6 MG TAB PO SCH ×2 (11:12→16:29)
[2021-02-27] MEDS: MORPHINE ORAL SOLN 10 MG/5 ML CUP PO SCH ×2 (11:13→14:11)
[2021-02-27] MEDS: HEPARIN SOD,PORK IN 0.45% NACL 25,000 UNIT in 0.45% NACL 1 250ML.BAG IV SCH (11:46)
[2021-02-27] MEDS ORDERED: LIDOCAINE 1% INJ 10MG/ML (20 ML MDV) ONE (11:57)
[2021-02-27] MEDS ORDERED: VERAPAMIL 2.5 MG/ML 2 ML AMP ONE (11:57)
[2021-02-27 11:59] LABS: Glucose,Whole Blood 124 mg/dL (75-99)
[2021-02-27] MEDS ORDERED: fentaNYL (PF) 50 MCG/ML 2 ML AMP ONE (12:44)
[2021-02-27] MEDS ORDERED: MIDAZOLAM 2 MG/2 ML VIAL IV ONE ×2 (12:47)
[2021-02-27] MEDS ORDERED: VERAPAMIL SYRINGE (5 MG/10 ML) INTRAARTER ONE ×3 (12:48→12:51)
[2021-02-27] MEDS ORDERED: LIDOCAINE 1% INJ 10MG/ML (10 ML MDV) SQ ONE ×2 (12:48→12:49)
[2021-02-27] MEDS ORDERED: HEPARIN SODIUM 1,000 UN/ML (10ML VL) ONE (12:49)
[2021-02-27] MEDS ORDERED: HEPARIN SODIUM 1,000 UN/ML (10ML VL) IV ONE (12:58)
[2021-02-27] MEDS ORDERED: IOPAMIDOL-370 125ML BTL INJ ONE (13:22)
[2021-02-27] MEDS ORDERED: SODIUM CHLORIDE 0.9% 1,000 ML IV ONE (13:22)
[2021-02-27] MEDS ORDERED: RX INFO: IV CONTRAST WAS GIVEN 1 EACH MISC MISCELLANE PRN (13:40)
--- NOTE | 2021-02-27 13:40 | P.CARDCATH ---
Description of Procedure: PROCEDURES PERFORMED: Left heart catheterization, bilateral coronary angiography, ALARCON angiography, SVG to diagonal/ramus, SVG to OM angiography, iFR RCA INDICATION: Chest pain concerning for unstable angina HISTORY: Patient is pleasant 80-year-old female with advanced COPD, coronary artery disease status post 4 vessel CABG with operative report noting ALARCON to LAD, SVG to diagonal, SVG to OM and SVG to RCA. She has been extremely debilitated with inability to do more than walk from her bed to the bathroom and therefore has been fairly bedbound and using a commode. She states most of her inhibition is that if she overdoes things she will become short of breath and have chest pressure and tightness. CONSENT:I have discussed the risks, benefits and alternative therapies for the above-mentioned procedure and for both sedation/analgesia as well as necessary blood product administration, if indicated, as they pertain to this patient. The patient has indicated understanding and acceptance of the risks and procedures discussed. PROCEDURE: After the risks, benefits and alternatives of the above mentioned procedure explained in detail with the patient, informed consent was obtained. Patient was taken to the catheterization lab and prepped and draped in usual fashion. 1% lidocaine was used to anesthetize the left radial artery. A 6- [place] sheath was placed in the left radial artery using modified Seldinger technique. Left coronary angiography was performed with a 5-[place] JL 4.0 catheter and right coronary angiography was performed with a 5-[place] JR5 catheter in various views. A 5-[place] FR5 catheter was inserted into the left ventricle and pressure measurements were obtained. SVG to diagonal/ramus and SVG to OM were performed with a 5Fr FR5. The SVG to RCA was noted to be occluded with no competitive flow. ALARCON angiography was performed and noted to be atretic and occluded The decision was made to perform iFR of the RCA given it appeared to be approximately 60% and the main possible target for intervention. Therefore heparin was given for ACT greater than 200. A 6-[place] effort 5 guide was used to engage the RCA. A 0.014 pressure wire was advanced into the proximal RCA and normalized. It was then advanced 1 cm distal to the lesion and iFR was performed and resulted 0.91. The left radial sheath was removed and a TR band was placed with hemostasis achieved. The patient tolerated the procedure well. Patient was transported back to the post catheterization holding area in stable condition. Conscious Sedation: Patient was monitored under the direct supervision of vision of myself for conscious sedation using Versed and fentanyl for a total duration of 35 minutes HEMODYNAMICS: Ao:121/78 LV: 120/2, LVEDP 6 SELECTIVE CORONARY ARTERIOGRAPHY: LEFT MAIN: The left main is a large caliber vessel which trifurcates into the LAD and circumflex. There is a distal 40-50% stenosis. LEFT ANTERIOR DESCENDING CORONARY ARTERY: LAD is a large caliber vessel which wraps around to the apex. There is mild 20-30% proximal LAD stenosis and otherwise mild luminal irregularities. RAMUS: The Ramus has a proximal 50-60% stenosis. There is competitive flow with the SVG. LEFT CIRCUMFLEX CORONARY ARTERY: Left circumflex is a moderate caliber vessel with 100% stenosis. RIGHT CORONARY ARTERY: The right coronary artery is a large caliber vessel which gives off a PDA and PLV branch and is the dominant vessel. There is a proximal 50-60% stenosis and otherwise only mild luminal irregularities. SVG to RCA: Occluded SVG to OM: Widely patent SVG to ramus: Widely patent ALARCON to LAD: Atretic and occluded FINAL IMPRESSION: 1. CAD as described above with left main 40-50% stenosis, LAD 20-30%, ramus 50- 60%, circumflex 100% stenosis, RCA 50-60% stenosis (iFR normal) 2. Patent SVG to OM, SVG to ramus. Occluded ALARCON and SVG to RCA, possibly related to nonsignificant stenosis. 3. Low normal left sided filling pressures PLAN: 1. Aggressive risk factor modification per most recent ACC/AHA guidelines. 2. Patient's [place] disease including left main 40-50% stenosis does not appear critical. Additionally the ALARCON graft went down concerning for nonsignificant left main disease to begin with. Would continue to treat medically. iFR RCA nonsignificant at 0.91. Otherwise appears to be fully revascularized. Would continue to treat COPD and possibly A. fib.
[2021-02-27] MEDS: polyethylene glycoL 3350 17 GM POWD.PACK PO SCH ×2 (14:12→16:30)
--- NOTE | 2021-02-27 15:52 | P.PN ---
Subjective Progress Note Date: 02/27/21 This is an 80-year-old female who was recently admitted with left-sided chest pain scheduled to undergo cardiac catheterization today with cardiology. Patient also being followed by pulmonary for an acute exacerbation of chronic obstructive pulmonary disease. Patient wears 4 L nasal cannula in the outp atient setting and denies any worsening shortness of breath. Patient states the shortness of breath occurs with minimal exertion and patient has continued cough with phlegm production that is clear and frothy in nature. White blood count is 18.2 and hemoglobin is 9.7, platelets are 408. Sodium is 137 with a potassium of 3.8 and current creatinine is 1.02. Blood sugar slightly elevated and will continue sliding scale and monitor Accu-Cheks before meals and at bedtime. Patient also continues on IV ceftriaxone and urine cultures finalized showing apparent skin and urogenital stanislav. Review of systems: Constitutional: No reports of fatigue, fever, or chills Cardiovascular: No reports of chest pain or palpitations Respiratory: reports intermittent shortness of breath and continued cough GI: No reports of nausea, vomiting, or diarrhea : No reports of dysuria or retention Neurovascular: reports of generalized weakness All medications have been reviewed Active Medications Acetaminophen (Acetaminophen Tab 325 Mg Tab) 650 mg PO Q6HR PRN PRN Reason: Mild Pain or Fever > 100.5 Last Admin: 02/25/21 08:59 Dose: 650 mg Documented by: Al Hydroxide/Mg Hydroxide (Mag Hydrox/Al Hydrox/Simeth 30 Ml Cup) 10 ml PO Q4H PRN PRN Reason: GI Upset Albuterol/Ipratropium (Ipratropium-Albuterol 3 Ml Neb) 3 ml INHALATION RT-TID [facility] Last Admin: 02/27/21 11:38 Dose: 3 ml Documented by: Albuterol/Ipratropium (Ipratropium-Albuterol 3 Ml Neb) 3 ml INHALATION RT-Q2H PRN PRN Reason: Shortness Of Breath Or Wheezing Alprazolam (Alprazolam 0.5 Mg Tab) 0.5 mg PO HS@2100 [facility] Last Admin: 02/26/21 21:29 Dose: 0.5 mg Documented by: Alprazolam (Alprazolam 0.25 Mg Tab) 0.25 mg PO Q6HR PRN PRN Reason: Mild Anxiety Amiodarone HCl (Amiodarone 200 Mg Tab) 400 mg PO BID [facility] Last Admin: 02/27/21 08:37 Dose: 400 mg Documented by: Aspirin (Aspirin 81 Mg) 81 mg PO DAILY [facility] Last Admin: 02/27/21 11:11 Dose: 81 mg Documented by: Bisacodyl (Bisacodyl 10 Mg Supp) 10 mg RECTAL Q72H PRN PRN Reason: Constipation Budesonide/Formoterol Fumarate (Symbicort 160-4.5 Mcg Inhaler) 2 puff INHALATION RT-BID [facility] Last Admin: 02/27/21 07:20 Dose: 2 puff Documented by: Diltiazem HCl (Diltiazem Cd 240 Mg Cap.Er.24h) 240 mg PO BID@0700,1700 [facility] Last Admin: 02/27/21 08:36 Dose: 240 mg Documented by: Fluticasone Propionate (Fluticasone 50mcg/[place] Nasal 16gm) 1 spray EA NOSTRIL Q12H PRN PRN Reason: Allergy Symptoms Furosemide (Furosemide 40 Mg Tab) 40 mg PO DAILY@0700 [facility] Last Admin: 02/26/21 09:47 Dose: 40 mg Documented by: Ceftriaxone Sodium 1 gm/ (Sodium Chloride) 50 mls @ 100 mls/hr IVPB Q24HR [facility] Last Admin: 02/27/21 08:39 Dose: 100 mls/hr Documented by: Heparin Sodium (Porcine) 10, (000 unit/ Sodium Chloride) 1,001 mls @ 999 mls/hr IRRIGATION ONCE PRN PRN Reason: INTRA-OP Stop: 02/27/21 23:00 Heparin Sodium (Porcine) 2,500 (unit/ Sodium Chloride) 250.5 mls @ 250 mls/hr IRRIGATION ONCE PRN PRN Reason: INTRA-OP Stop: 02/27/21 23:00 Insulin Aspart (Insulin Aspart (Novolog) 100 Unit/Ml Vial) 0 unit SQ ACHS [facility]; Protocol Last Admin: 02/27/21 12:23 Dose: Not Given Documented by: Magnesium Hydroxide (Magnesium Hydroxide 2,400 Mg/10 Ml Cup) 2,400 mg PO Q48H PRN PRN Reason: Constipation Miscellaneous Information (Rx Info: Iv Contrast Was Given 1 Each Misc) 1 each MISCELLANE DAILY PRN PRN Reason: Per Protocol Stop: 03/01/21 13:40 Morphine Sulfate (Morphine Oral Soln 10 Mg/5 Ml Cup) 10 mg PO DAILY@1030 [facility] Last Admin: 02/27/21 14:11 Dose: 10 mg Documented by: Morphine Sulfate (Morphine Oral Soln 10 Mg/5 Ml Cup) 10 mg PO Q6H PRN PRN Reason: Pain Naloxone HCl (Naloxone 0.4 Mg/Ml 1 Ml Vial) 0.2 mg IV Q2M PRN PRN Reason: Opioid Reversal Nitroglycerin (Nitroglycerin Sl Tabs 0.4 Mg Tab) 0.4 mg SUBLINGUAL Q5M PRN PRN Reason: Chest Pain Ondansetron HCl (Ondansetron 4 Mg/2 Ml Vial) 4 mg IVP Q8HR PRN PRN Reason: Nausea And Vomiting Pantoprazole Sodium (Pantoprazole 40 Mg Tablet) 40 mg PO AC-BID [facility] Last Admin: 02/27/21 08:39 Dose: Not Given Documented by: Polyethylene Glycol (Polyethylene Glycol 3350 17 Gm Powd.Pack) 17 gm PO DAILY@1430 [facility] Last Admin: 02/27/21 14:12 Dose: Not Given Documented by: Potassium Chloride (Potassium Chloride Er 10 Meq Tab.Er.Prt) 10 meq PO BID@0700,1700 [facility] Last Admin: 02/27/21 11:12 Dose: Not Given Documented by: Prochlorperazine Maleate (Prochlorperazine 10 Mg Tab) 10 mg PO DAILY@0700 [facility] Last Admin: 02/27/21 11:12 Dose: Not Given Documented by: Senna (Sennosides 8.6 Mg Tab) 8.6 mg PO BID@0700,1700 [facility] Last Admin: 02/27/21 11:12 Dose: Not Given Documented by: Sodium Biphosphate/Sodium Phosphate (Na Phos,M-B/Na Phos,Di-Ba 133 Ml Enema) 133 ml RECTAL Q96H PRN PRN Reason: Constipation Physical exam: Gen: This is a 80-year-old female awake, alert and oriented 3, well-developed, well-nourished. Temp is 97.5F, pulse is 88, respirations are 18, blood pressure is 127/74, oxygen saturation is 94% on 4 L via nasal cannula HEENT: Head is atraumatic, normocephalic. Pupils equal, round. Sclerae is anicteric. NECK: Supple. No JVD. No lymphadenopathy. No thyromegaly. LUNGS: Diminished breath sounds bilaterally with some scattered rhonchi and coughing noted on exam. Clear frothy phlegm production on exam as well. No intercostal retractions. HEART: S1, S2 are muffled ABDOMEN: Soft. Bowel sounds are present. No masses. No tenderness. EXTREMITIES: No pedal edema. No calf tenderness. NEUROLOGICAL: Patient is awake, alert and oriented x3. Diffusely weak with no focal deficits noted. Assessment: Left-sided chest pain possible unstable angina, rule out coronary artery disease Chronic obstructive pulmonary disease, mild acute exacerbation with hypercarbia an acute hypoxic hypercarbic respiratory failure Acute urinary tract infection, present on admission Increased white blood count Anemia, microcytic [place] elevated CO2 Chronic hypoxic hypercarbic respiratory failure on home O2 History of atrial fibrillation History of chest pain, angina History of coronary disease, coronary artery bypass grafting History of congestive heart failure History of chronic obstructive pulmonary disease next a remote history of nicoti ne dependence Full code Plan: Recommend to continue with current medications and management. Cardiology and pulmonary following closely and patient is maintained on breathing inhalational treatments along with IV ceftriaxone and will continue. Plan is for cardiac catheterization today with Dr. Lipscomb. Will await report. Patient resides at [facility] and will be returning on there once stabilized discharged and social work following. Due to multiple complex medical issues, prognosis is guarded. Possible discharge in 24-48 hours. Objective - Vital Signs Vital signs: Vital Signs Temp 97.5 F L 02/27/21 07:30 Pulse 88 02/27/21 07:30 Resp 18 02/27/21 07:30 BP 127/74 02/27/21 07:30 Pulse Ox 94 L 02/27/21 07:30 Intake & Output 02/26/21 02/27/21 02/27/21 18:59 06:59 18:59 Intake Total 253.498 0 Balance 253.498 0 Intake: Intake, IV Titration 135.498 Amount Heparin Sod,Pork in 0.45% 135.498 NaCl 25,000 unit In 0.45 % NaCl 1 250ml.bag @ 12 UNITS/KG/HR 7.62 mls/hr IV .Q24H [facility] Rx#: [id number] Oral 118 0 Other: Voiding Method Toilet Toilet # Voids 1 # Bowel Movements 0 - Labs CBC & Chem 7: 02/27/21 05:06 02/27/21 05:06 Labs: Abnormal Lab Results - Last 24 Hours (Table) 02/26/21 02/26/21 02/26/21 Range/Units 11:04 12:01 17:20 WBC (3.8-10.6) k/uL Hgb (11.4-16.0) gm/dL Hct (34.0-46.0) % MCV (80.0-100.0) fL MCH (25.0-35.0) pg MCHC (31.0-37.0) g/dL RDW (11.5-15.5) % APTT 44.8 H (22.0-30.0) sec Chloride (98-107) mmol/L Carbon Dioxide (22-30) mmol/L BUN (7-17) mg/dL Glucose (74-99) mg/dL POC Glucose (mg/dL) 283 H 162 H (75-99) mg/dL 02/26/21 02/27/21 02/27/21 Range/Units 21:02 05:06 05:06 WBC (3.8-10.6) k/uL Hgb (11.4-16.0) gm/dL Hct (34.0-46.0) % MCV (80.0-100.0) fL MCH (25.0-35.0) pg MCHC (31.0-37.0) g/dL RDW (11.5-15.5) % APTT 50.3 H (22.0-30.0) sec Chloride 90 L (98-107) mmol/L Carbon Dioxide 37 H (22-30) mmol/L BUN 51 H (7-17) mg/dL Glucose 149 H (74-99) mg/dL POC Glucose (mg/dL) 247 H (75-99) mg/dL 02/27/21 02/27/21 Range/Units 05:06 06:07 WBC 18.2 H (3.8-10.6) k/uL Hgb 9.7 L (11.4-16.0) gm/dL Hct 32.0 L (34.0-46.0) % MCV 74.1 L (80.0-100.0) fL MCH 22.3 L (25.0-35.0) pg MCHC 30.1 L (31.0-37.0) g/dL RDW 17.7 H (11.5-15.5) % APTT (22.0-30.0) sec Chloride (98-107) mmol/L Carbon Dioxide (22-30) mmol/L BUN (7-17) mg/dL Glucose (74-99) mg/dL POC Glucose (mg/dL) 158 H (75-99) mg/dL
[2021-02-27] MEDS: FUROSEMIDE 40 MG TAB PO SCH (16:28)
[2021-02-27 17:21] LABS: Glucose,Whole Blood 132 mg/dL (75-99)
--- NOTE | 2021-02-27 19:37 | ECHOF ---
Referral Reason:re: LV function MEASUREMENTS -------- HEIGHT: 157.5 cm WEIGHT: 635.5 kg BP: 127/74 RVIDd: 3.3 cm (< 3.3) IVSd: 1.3 cm (0.6 - 1.1) LVIDd: 4.0 cm (3.9 - 5.3) LVPWd: 1.4 cm (0.6 - 1.1) IVSs: 1.6 cm LVIDs: 2.6 cm LVPWs: 1.8 cm LAESV Index (A-L): 25.74 ml/m Ao Diam: 3.2 cm (2.0 - 3.7) AV Cusp: 1.6 cm (1.5 - 2.6) LA Diam: 5.0 cm (2.7 - 3.8) MV EXCURSION: 21.866 mm (> 18.000) MV EF SLOPE: 141 mm/s (70 - 150) EPSS: 0.9 cm RAP: 5.00 mmHg RVSP: 50.19 mmHg FINDINGS -------- Sinus rhythm with extra systolic beats. This was a technically adequate study. Pt. not able to turn due to recent heart cath. The left ventricular size is normal. There is mild concentric left ventricular hypertrophy. Overa ll left ventricular systolic function is mildly impaired with, an EF between 45 - 50 %. The right ventricle is mildly enlarged. Normal LA size by volume 22+/-6 ml/m2. The right atrium is mildly enlarged. Interatrial and interventricular septum intact. There is mild aortic valve sclerosis. There is no evidence of aortic regurgitation. There is no e vidence of aortic stenosis. Mild mitral annular calcification present. Hnum-yk-yuwkzrgm mitral regurgitation is present. Moderate tricuspid regurgitation present. There is moderate pulmonary hypertension. The right sarath tricular systolic pressure, as measured by Doppler, is 50.19mmHg. The pulmonic valve was not well visualized. There is no pulmonic regurgitation present. The aortic root size is normal. The inferior vena cava is mildly dilated. There is no pericardial effusion. CONCLUSIONS -------- 1. There is mild concentric left ventricular hypertrophy. 2. Overall left ventricular systolic function is mildly impaired with, an EF between 45 - 50 %. 3. The right ventricle is mildly enlarged. 4. Normal LA size by volume 22+/-6 ml/m2. 5. The right atrium is mildly enlarged. 6. Qugd-lo-hmelqzwt mitral regurgitation is present. 7. Moderate tricuspid regurgitation present. 8. There is moderate pulmonary hypertension. 9. There is no pericardial effusion. CUTTING DEPARTMENT SUPERVISOR: Eneida Vela RDCS
[2021-02-27 20:44] LABS: Glucose,Whole Blood 132 mg/dL (75-99)
[2021-02-27] MEDS: ALPRAZolam 0.5 MG TAB PO SCH (21:02)
[2021-02-28 06:26] LABS: African American GFR (CKD) 53 (>60 ml/min/1.73 sqM); Anion Gap 6 mmol/L; Blood Urea Nitrogen 33 mg/dL (7-17); Calcium 9.1 mg/dL (8.4-10.2); Carbon Dioxide 36 mmol/L (22-30); Chloride 97 mmol/L (98-107); Glucose 107 mg/dL (74-99); Non-African American GFR(CKD) 46 (>60 ml/min/1.73 sqM); Potassium 4.2 mmol/L (3.5-5.1); Sodium 139 mmol/L (137-145)
[2021-02-28] MEDS: IPRATROPIUM-ALBUTEROL 3 ML NEB INHALATION SCH ×3 (07:03→19:05)
[2021-02-28] MEDS: SYMBICORT 160-4.5 MCG INHALER INHALATION SCH (07:03)
[2021-02-28 07:42] LABS: Glucose,Whole Blood 106 mg/dL (75-99)
[2021-02-28] MEDS: PANTOPRAZOLE 40 MG TABLET PO SCH ×2 (08:12→17:29)
[2021-02-28] MEDS: ASPIRIN 81 MG PO SCH (08:12)
[2021-02-28] MEDS: SENNOSIDES 8.6 MG TAB PO SCH ×2 (08:12→17:29)
[2021-02-28] MEDS: FUROSEMIDE 40 MG TAB PO SCH (08:13)
[2021-02-28] MEDS: POTASSIUM CHLORIDE ER 10 MEQ TAB.ER.PRT PO SCH ×2 (08:13→17:30)
[2021-02-28] MEDS: AMIODARONE 200 MG TAB PO SCH ×2 (08:16→20:47)
[2021-02-28] MEDS: PROCHLORPERAZINE 10 MG TAB PO SCH (08:16)
[2021-02-28] MEDS: DILTIAZEM CD 240 MG CAP.ER.24H PO SCH ×2 (08:16→17:29)
[2021-02-28] MEDS: INSULIN ASPART (NovoLOG) 100 UNIT/ML VIAL SQ SCH ×4 (08:18→20:50)
[2021-02-28] MEDS: MORPHINE ORAL SOLN 10 MG/5 ML CUP PO SCH (10:30)
--- NOTE | 2021-02-28 11:11 | P.PN ---
Subjective Progress Note Date: 02/28/21 Principal diagnosis: Chest pain. Pulmonary consult dated 02/26/2021. 80-year-old female who is admitted to the hospital with complaints of chest discomfort, and nausea. The chest pain was substernal in nature. She was seen in the emergency department on February 24. The patient was admitted to the [address] [place] [address]. We were asked to see the patient is a patient has been previously diagnosed with COPD. She apparently has never seen a lung doctor in the past. The patient apparently smoked for 40 years at about a pack or pack and a half a day. Anyway, the patient does not take any breathing medications at home on a regular basis. She does use oxygen at 3-4 L/m . The patient was seen by cardiology. Her primary issue is that of chest discomfort. She is chronic ally short of breath with any activity. She's pretty much at baseline though. She denies any cough, wheezing, phlegm production, chest congestion, fever, or chills. The patient in addition to COPD, has a history of CAD, prior bypass grafting, coronary disease, and heart failure. Family history is negative for cardiac disease although apparently there is a family history of kidney issues. White count 18.1, hemoglobin 10.1, hematocrit 34.6, and platelet count 404,000. PT and INR are normal. PTT is 44.8. Sodium 137, potassium 3.8, chlorides 89, CO2 39, anion gap 9, BUN 42, and creatinine 1.08. Based on the bicarbonate concentration of 39, the patient is likely a CO2 retainer, with a baseline CO2 of 68, plus or minus 2 mmHg. Chest x-ray shows some cardiomegaly, and some patchy atelectatic changes in both lungs. Progress note dated 02/27/2021. The patient was admitted with a diagnosis of chest pain. The patient is to have a cardiac catheterization today with Dr. Lipscomb. The patient most likely has underlying significant COPD, based on her smoking history, examination, sympt oms, and the fact, that she is likely a CO2 retainer. The patient will need an outpatient evaluation including complete pulmonary function tests, and a 6 minute walk distance. Currently, she is resting comfortably. White count 18.2, hemoglobin 9.7, hematocrit 32 and platelet count 488,000. PTT is 50.3. Sodium and potassium are normal. Chloride 90, CO2 37, anion gap 10, BUN 51, and creatinine 1.02. Chest x-ray from the was already reviewed. Progress note dated 02/28/2021. This is an 80-year-old female with a history of chest pain. The patient underwent cardiac catheterization. I did read the report. Patient is going be treated medically, with very aggressive risk factor modification. In addition, the patient is currently on a blood thinner, and might be considered for a ca rdioversion down the road. The patient did smoke many years, and likely has underlying significant COPD. The patient likely has at least stage III COPD, based on the fact that she is a retainer of carbon dioxide. We talked about her coming to the office after discharge, for pulmonary function testing in 6 minute walk distance, and she doesn't sound too enthused about that. She also was not too enthused about what cardiology had to say about her. Sodium is 139, potassium 4.2, chlorides 97, CO2 36, anion gap 6, BUN 33, creatinine 1.13. Chest x-ray shows some mild basilar atelectasis, and small bilateral effusions. Objective - Vital Signs Vital signs: Vital Signs Temp 97.8 F 02/28/21 07:00 Pulse 96 02/28/21 10:57 Resp 16 02/28/21 07:00 BP 150/71 02/28/21 07:00 Pulse Ox 92 L 02/28/21 07:05 Intake & Output 02/27/21 02/28/21 02/28/21 18:59 06:59 18:59 Intake Total 850 Balance 850 Intake: IV 600 Intake, IV Titration 250 Amount Heparin Sod,Pork in 0.45% 250 NaCl 25,000 unit In 0.45 % NaCl 1 250ml.bag @ 12 UNITS/KG/HR 7.62 mls/hr IV .Q24H [facility] Rx#: [id number] Other: Voiding Method Bedside Commode Bedside Commode # Voids 5 2 # Bowel Movements 0 - Exam No acute distress, oriented 3. No acute respiratory distress, audible wheezing, use of accessory muscles, or conversational dyspnea. The patient's currently on 4 L nasal cannula with adequate saturations (92 %). HEENT examination is grossly unremarkable. Neck supple. Full range of motion. No adenopathy thyromegaly or neck vein distention. Cardiovascular examination reveals regular rhythm rate. S1-S2 normal. No S3 or S4. No discernible murmur noted. Heart rate is 96 bpm. Lungs reveal severely diminished breath sounds throughout. Mild to moderate scattered rhonchi are noted. Fine expiratory wheezes are noted as well. No crackles. Breath sounds equal bilaterally.. Abdomen soft bowel sounds are heard. No masses or tenderness. Extremities are intact. No cyanosis clubbing or edema. Skin is without rash or lesion. Neurologic examination is brief but nonfocal. - Labs CBC & Chem 7: 02/27/21 05:06 02/28/21 05:40 Labs: Abnormal Lab Results - Last 24 Hours (Table) 02/27/21 02/27/21 02/27/21 Range/Units 11:58 17:20 20:43 Chloride (98-107) mmol/L Carbon Dioxide (22-30) mmol/L BUN (7-17) mg/dL Creatinine (0.52-1.04) mg/dL Glucose (74-99) mg/dL POC Glucose (mg/dL) 124 H 132 H 132 H (75-99) mg/dL 02/28/21 02/28/21 Range/Units 05:40 07:41 Chloride 97 L (98-107) mmol/L Carbon Dioxide 36 H (22-30) mmol/L BUN 33 H (7-17) mg/dL Creatinine 1.13 H (0.52-1.04) mg/dL Glucose 107 H (74-99) mg/dL POC Glucose (mg/dL) 106 H (75-99) mg/dL Assessment and Plan Assessment: Chest pain, currently being evaluated by cardiology, with cardiac catheterization planned for February 27. Patient did not require any stent. The patient will be treated medically. Chronic obstructive pulmonary disease, likely quite severe, as the patient is a CO2 retainer, with a calculated expected PaCO2 of 68, plus or minus 2 mmHg. Previous history of 40 years of tobacco use. History of CAD, status post CABG. History of heart failure. History of atrial fibrillation. History of hypertension. History of chronic anemia. Plan: Plan dated 02/26/2021. The patient's medications have been adjusted accordingly. She is currently on Symbicort 160/4.5, 2 puffs twice a day. In addition, the patient is on DuoNeb nebs, 4 times a day and when necessary. The patient does not need corticosteroids at this time. Her cardiac symptoms are currently being evaluated by the cardiology team. We will continue to follow make recommendations where appropriate. Additional recommendations and suggestions are forthcoming. The patient with deftly benefit from an outpatient pulmonary evaluation with complete pulmonary function test, when she is discharged. Plan dated 02/27/2021. The patient is scheduled to have a cardiac catheterization today. She remains on saline at 20 mL an hour, and IV heparin. The patient also remains on 4 L nasal cannula. Once she is discharged from the hospital, she would need a [facility] pulmonary evaluation. This will include a follow-up evaluation in my office, as well as a complete pulmonary function test, in 6 minute walk distance. Additional recommendations and suggestions are forthcoming. We will continue to follow make recommendations where appropriate. Plan dated 02/28/2021. The patient did have a cardiac catheterization done yesterday. The report was read. The patient is to be managed with aggressive risk factor modification, and down the road, the patient may be a candidate for cardioversion. The patient does not seem very excited about anything that was told to her today by either cardiology or by our group. She likely has severe COPD. She'll need a complete PFTs in 6 she apparently had one in the past and was not too excited about it. I don't have a lot of confidence that the patient will show up to the office post discharge. I will switch the patient from Symbicort to a combination of Pulmicort 1 mg, and formoterol 20 g. Time with Patient: Less than 30
--- NOTE | 2021-02-28 11:13 | P.PN ---
Subjective Patient is a pleasant 80-year-old female with history of COPD on 4 L home oxygen, coronary artery disease status post 4 vessel CABG 2000 (ALARCON to LAD, vein graft to diagonal, OM1 and RCA distal), hypertension, hyperlipidemia, persistent atrial fibrillation with attempted cardioversion in 2019, arthritis, anemia. She used to follow with highway maintenance crew worker at [facility] in [place], but states she has not followed with a highway maintenance crew worker in about 8-10 years. Patient presents to the emergency department secondary to chest pain for approximately one week. On admission, she stated that it felt similar to her prior CABG and which she gets fairly often which has been fairly constant over the last 1 week. On presentation with she was found to be in A. fib with mild RVR, heart rate since admission have been 90s to 110s. She was placed on her home Cardizem 180 mg twice a day as well as her home Lasix 80 mg daily and given steroids. troponin negative 3, proBNP 1190. Records obtained from [facility]: Patient was previously hospitalized at [facility] in [place] in December-January 2019. She presented with shortness of breath and palpitations she was found to be in atrial fibrillation with RVR. She was started on IV Cardizem drip. An echo was performed which showed an EF 55-60%. She underwent a nuclear stress test on which revealed no reversible ischemia, small area of possible coronary infarct, LVEF 67%, no wall motion abnormality. She also underwent CHICA and cardioversion which was successful however within 2 hours she converted back to atrial fibrillation with RVR. Her CHICA revealed an LVEF 5560 percent, mildly dilated LA, no evidence of pericardial effusion, mild aortic valve sclerosis. She was transitioned to Cardizem 180 mg twice a day and bisoprolol 5 mg daily. 02/28/21: Yesterday patient underwent cardiac catheterization with Dr. Lipscomb which revealed left main 4050 percent stenosis, LAD 20-30% stenosis, ramus 5060%, circumflex 100% stenosis, RCA 50-60% stenosis (iFR normal). Patent SVG to OM, SVG to ramus. Occluded ALARCON and SVG to RCA, possibly related to nonsignificant stenosis. Low normal left sided filling pressures. Recommend medical therapy. Patient seen and examined at bedside. No acute distress. She denies chest pain, lightheadedness, dizziness, palpitations. She does continue to have some shortness of breath. Telemetry reviewed patient continues to be in atrial fibrillation with better controlled ventricular rates. Laboratory data review WBC 139, potassium 4.2, BUN 33, serum creatinine 1.1 (elevated creatinine most likely due to contrast from cardiac cath). She is currently maintained on aspirin 81 mg daily, Eliquis 5 mg twice a day, amiodarone 400 mg twice a day, Lasix 20 mg daily PO. Telemetry reviewed patient continues been H fibrillation with controlled ventricular rates. PHYSICAL EXAMINATION Blood pressure 110/65, heart rate 86, afebrile, maintaining oxygen saturations on 4 L nasal cannula. CONSTITUTIONAL: No apparent distress, frail on O2 HEENT: Neck Supple. No JVD. No carotid bruit. CHEST EXAMINATION: Lungs are clear to auscultation. No chest wall tenderness is noted on palpation or with deep breathing. HEART EXAMINATION: Irregular rate and rhythm. S1, S2 heard. No murmurs, gallops or rub. ABDOMEN: Soft, nontender. Positive bowel sounds. EXTREMITIES: 2+ peripheral pulses, no lower extremity edema and no calf tenderness. SKIN: Left wrist cath site clean dry intact no hematoma 2+ pulses NEUROLOGIC EXAMINATION: Patient is awake, alert and oriented x3. ASSESSMENT Unstable angina Coronary artery disease status post 4 vessel CABG in 1999 Acute on chronic respiratory failure component of chronic COPD however additional component of angina Persistent atrial fibrillation with mild RVR - Patient states she was taken off Eliquis, but unsure why. She does have history of anemia. She denies any pro blems when taking Eliquis Chronic diastolic heart failure, appears euvolemic COPD on home O2 Hypertension Hyperlipidemia Anemia, likely iron deficiency and has been off of any anticoagulation or anti platelets PLAN -Start Eliquis 5mg BID for thromboembolic protection -Start atorvastatin 40mg daily -Amiodarone 400mg BID started 02/25, will decrease amiodarone 200mg BID -Cardizem 240mg BID -Lasix PO 20mg daily -From a cardiology perspective patient is stable to be discharged home. Educated patient on close follow up with cardiology and pulmonary. Recommend patient follow up with Dr. Lipscomb in 1 week. Objective - Vital Signs Vital signs: Vital Signs Temp 97.8 F 02/28/21 07:00 Pulse 88 02/28/21 10:43 Resp 16 02/28/21 07:00 BP 150/71 02/28/21 07:00 Pulse Ox 92 L 02/28/21 07:05 Intake & Output 02/27/21 02/28/21 02/28/21 18:59 06:59 18:59 Intake Total 850 Balance 850 Intake: IV 600 Intake, IV Titration 250 Amount Heparin Sod,Pork in 0.45% 250 NaCl 25,000 unit In 0.45 % NaCl 1 250ml.bag @ 12 UNITS/KG/HR 7.62 mls/hr IV .Q24H [facility] Rx#: [id number] Other: Voiding Method Bedside Commode Bedside Commode # Voids 5 2 # Bowel Movements 0 - Labs CBC & Chem 7: 02/27/21 05:06 02/28/21 05:40 Labs: Abnormal Lab Results - Last 24 Hours (Table) 02/27/21 02/27/21 02/27/21 Range/Units 11:58 17:20 20:43 Chloride (98-107) mmol/L Carbon Dioxide (22-30) mmol/L BUN (7-17) mg/dL Creatinine (0.52-1.04) mg/dL Glucose (74-99) mg/dL POC Glucose (mg/dL) 124 H 132 H 132 H (75-99) mg/dL 02/28/21 02/28/21 Range/Units 05:40 07:41 Chloride 97 L (98-107) mmol/L Carbon Dioxide 36 H (22-30) mmol/L BUN 33 H (7-17) mg/dL Creatinine 1.13 H (0.52-1.04) mg/dL Glucose 107 H (74-99) mg/dL POC Glucose (mg/dL) 106 H (75-99) mg/dL
[2021-02-28 12:32] LABS: Glucose,Whole Blood 160 mg/dL (75-99)
--- NOTE | 2021-02-28 12:43 | P.DS ---
Providers Date of admission: 02/26/21 08:15 Expected date of discharge: 02/28/21 Attending physician: Israel Dobbs Consults: 02/24/21 16:03 Consult Physician Routine Consulting Provider: [facility] Consult Reason/Comments: chest pain, heart failure exacerbation, history of afib Do you want consulting provider notified?: Yes 02/25/21 19:10 Consult Physician Routine Consulting Provider: Raul Humphrey Consult Reason/Comments: copd Do you want consulting provider notified?: Yes Primary care physician: Miguelangel Mcfadden Hospital Course: Final diagnosis Left-sided chest pain possible unstable angina, ruled out acute coronary event Chronic obstructive pulmonary disease, mild acute exacerbation with hypercarbia an acute hypoxic hypercarbic respiratory failure Acute urinary tract infection, present on admission Increased white blood count Anemia, microcytic elevated CO2 Chronic hypoxic hypercarbic respiratory failure on home O2 History of atrial fibrillation History of chest pain, angina History of coronary disease, coronary artery bypass grafting History of congestive heart failure History of chronic obstructive pulmonary disease remote history of nicotine dependence Full code Discharge disposition Patient is being discharged in a stable condition with guarded prognosis to [facility]. Patient will follow-up with Dr. Miguelangel Mcfadden in the outpatient setting upon discharge. Patient is to continue with hemodialysis as scheduled. Total time taken is greater than 35 minutes. Hospital course This is an 80-year-old female who was recently admitted with left-sided chest pain scheduled to undergo cardiac catheterization today with cardiology. Patient also being followed by pulmonary for an acute exacerbation of chronic obstructive pulmonary disease. Patient wears 4 L nasal cannula in the outpatient setting and denies any worsening shortness of breath. Patient states the shortness of breath occurs with minimal exertion and patient has continued cough with phlegm production that is clear and frothy in nature. White blood count is 18.2 and hemoglobin is 9.7, platelets are 408. Sodium is 137 with a potassium of 3.8 and current creatinine is 1.02. Blood sugar slightly elevated and will continue sliding scale and monitor Accu-Cheks before meals and at bedtime. Patient also continues on IV ceftriaxone and urine cultures finalized showing apparent skin and urogenital stanislav. 02/28/2021 Patient is seen and evaluated and follow-up continues to have some shortness of breath which is chronic and maintained on 4 L via nasal cannula. Pulmonary along with cardiology evaluated the patient and underwent cardiac catheterization recommending maximum medical management and close outpatient follow-up. She also needs further testing if PFT with pulmonary outpatient. Patient will continue on reading inhalational treatments along with oral Ceftin 500 mg twice daily for the next 4 days and then may discontinue. Recommend repe at labs to monitor WBC and kidney functions. Currently no reports of chest pain, worsening shortness of breath, or palpitations. Patient is afebrile. No reports of nausea or vomiting and patient is tolerating diet. Patient will be going to [facility] today. Guarded prognosis Gen: This is a 80-year-old female awake, alert and oriented 3, well-developed, well-nourished. Temp is 97.8F, pulse is 96, respirations are 16, blood pressure is 150/71, oxygen saturation is 92% on 4 L via nasal cannula HEENT: Head is atraumatic, normocephalic. Pupils equal, round. Sclerae is ani cteric. NECK: Supple. No JVD. No lymphadenopathy. No thyromegaly. LUNGS: Diminished breath sounds bilaterally with some scattered rhonchi and coughing noted on exam. Clear frothy phlegm production on exam as well. No intercostal retractions. HEART: S1, S2 are muffled ABDOMEN: Soft. Bowel sounds are present. No masses. No tenderness. EXTREMITIES: No pedal edema. No calf tenderness. NEUROLOGICAL: Patient is awake, alert and oriented x3. Diffusely weak with no focal deficits noted. Please refer to medication reconciliation sheet for a list of medications. Patient Condition at Discharge: Fair Plan - Discharge Summary Discharge Rx Participant: No New Discharge Prescriptions: New Furosemide [Lasix] 20 mg PO DAILY@0700 tab Ipratropium-Albuterol Nebulize [Duoneb 0.5 mg-3 mg/3 ml Soln] 3 ml INHALATION RT-TID ml Ipratropium-Albuterol Nebulize [Duoneb 0.5 mg-3 mg/3 ml Soln] 3 ml INHALATION RT-Q2H PRN ml PRN Reason: Shortness Of Breath Or Wheezing Formoterol Fumarate [Perforomist] 20 mcg INHALATION RT-BID ml Apixaban [Eliquis] 5 mg PO BID 30 Days #60 tab Diltiazem Cd [Cardizem CD] 240 mg PO BID@0700,1700 Amiodarone [Cordarone] 200 mg PO BID tab Atorvastatin [Lipitor] 40 mg PO DAILY tab Budesonide [Pulmicort] 1 mg INHALATION RT-BID ml Cefuroxime Axetil [Ceftin] 500 mg PO BID 4 Days #8 tab Continue Albuterol Nebulized [Ventolin Nebulized] 2.5 mg INHALATION RT-Q4H PRN PRN Reason: Shortness Of Breath Fluticasone Nasal [place] [Flonase Nasal [place]] 1 spray EA NOSTRIL Q12H PRN PRN Reason: Allergy Symptoms Mag Hydrox/Aluminum Hyd/Simeth [Mylanta Maximum Strength Liq] 10 ml PO Q4H PRN PRN Reason: Gi Upset MORPHINE ORAL MANJULA CONC 20mg/mL [Roxanol Oral Soln Conc 20MG/ML] 5 mg PO Q2H PRN PRN Reason: Pain Na Phos,M-B/Na Phos,Di-Ba [Fleet Adult] 133 ml RECTAL Q96H PRN PRN Reason: Constipation Nitroglycerin Sl Tabs [Nitrostat] 0.4 mg SUBLINGUAL Q5M PRN PRN Reason: Chest Pain Omeprazole [PriLOSEC] 20 mg PO BID@0530,1830 Prochlorperazine [Compazine] 10 mg PO Q6H PRN PRN Reason: Nausea And Vomiting Sennosides/Docusate Sodium [Senna Plus 8.6-50 mg Softgel] 1 cap PO BID@0700,1700 MORPHINE ORAL MANJULA CONC 20mg/mL [Roxanol Oral Soln Conc 20MG/ML] 10 mg PO Q2H PRN #2 ml PRN Reason: Pain Prochlorperazine [Compazine] 10 mg PO DAILY@0700 Polyethylene Glycol 3350 [Miralax] 17 gm PO DAILY@1430 Meloxicam 7.5 mg PO DAILY@0700 Acetaminophen [Tylenol] 1,000 mg PO DAILY@1500 Acetaminophen Tab [Tylenol] 1,000 mg PO BID PRN PRN Reason: Pain bisacodyL [Dulcolax] 10 mg RECTAL Q72H PRN PRN Reason: Constipation Magnesium Hydroxide [Milk of Magnesia] 2,400 mg PO Q48H PRN PRN Reason: Constipation Potassium Chloride ER [K-Dur 10] 10 meq PO BID@0700,1700 MORPHINE ORAL MANJULA CONC 20mg/mL [Roxanol Oral Soln Conc 20MG/ML] 10 mg PO DA REINALDO@1030 #3 ml ALPRAZolam [Xanax] 0.5 mg PO HS@2100 #4 tab Discontinued Furosemide [Lasix] 80 mg PO DAILY@0700 metOLazone [Zaroxolyn] 2.5 mg PO DAILY@0530 Albuterol Nebulized [Ventolin Nebulized] 2.5 mg INHALATION RT-BID@0730,1600 Diltiazem HCl [Diltiazem HCl 24Hr ER (XR)] 180 mg PO BID@0700,1700 Discharge Medication List Acetaminophen Tab [Tylenol] 1,000 mg PO BID PRN 02/24/21 [History] Acetaminophen [Tylenol] 1,000 mg PO DAILY@1500 02/24/21 [History] Albuterol Nebulized [Ventolin Nebulized] 2.5 mg INHALATION RT-Q4H PRN 02/24/21 [History] Fluticasone Nasal [place] [Flonase Nasal [place]] 1 spray EA NOSTRIL Q12H PRN 02/24/21 [History] MORPHINE ORAL MANJULA CONC 20mg/mL [Roxanol Oral Soln Conc 20MG/ML] 5 mg PO Q2H PRN 02/24/21 [History] Mag Hydrox/Aluminum Hyd/Simeth [Mylanta Maximum Strength Liq] 10 ml PO Q4H PRN 02/24/21 [History] Magnesium Hydroxide [Milk of Magnesia] 2,400 mg PO Q48H PRN 02/24/21 [History] Meloxicam 7.5 mg PO DAILY@0700 02/24/21 [History] Na Phos,M-B/Na Phos,Di-Ba [Fleet Adult] 133 ml RECTAL Q96H PRN 02/24/21 [History] Nitroglycerin Sl Tabs [Nitrostat] 0.4 mg SUBLINGUAL Q5M PRN 02/24/21 [History] Omeprazole [PriLOSEC] 20 mg PO BID@0530,1830 02/24/21 [History] Polyethylene Glycol 3350 [Miralax] 17 gm PO DAILY@1430 02/24/21 [History] Potassium Chloride ER [K-Dur 10] 10 meq PO BID@0700,1700 02/24/21 [History] Prochlorperazine [Compazine] 10 mg PO DAILY@0700 02/24/21 [History] Prochlorperazine [Compazine] 10 mg PO Q6H PRN 02/24/21 [History] Sennosides/Docusate Sodium [Senna Plus 8.6-50 mg Softgel] 1 cap PO BID@0700,1700 02/24/21 [History] bisacodyL [Dulcolax] 10 mg RECTAL Q72H PRN 02/24/21 [History] ALPRAZolam [Xanax] 0.5 mg PO HS@2100 #4 tab 02/28/21 [Rx] Amiodarone [Cordarone] 200 mg PO BID tab 02/28/21 [Rx] Apixaban [Eliquis] 5 mg PO BID 30 Days #60 tab 02/28/21 [Rx] Atorvastatin [Lipitor] 40 mg PO DAILY tab 02/28/21 [Rx] Budesonide [Pulmicort] 1 mg INHALATION RT-BID ml 02/28/21 [Rx] Cefuroxime Axetil [Ceftin] 500 mg PO BID 4 Days #8 tab 02/28/21 [Rx] Diltiazem Cd [Cardizem CD] 240 mg PO BID@0700,1700 02/28/21 [Rx] Formoterol Fumarate [Perforomist] 20 mcg INHALATION RT-BID ml 02/28/21 [Rx] Furosemide [Lasix] 20 mg PO DAILY@0700 tab 02/28/21 [Rx] Ipratropium-Albuterol Nebulize [Duoneb 0.5 mg-3 mg/3 ml Soln] 3 ml INHALATION RT-Q2H PRN ml 02/28/21 [Rx] Ipratropium-Albuterol Nebulize [Duoneb 0.5 mg-3 mg/3 ml Soln] 3 ml INHALATION RT-TID ml 02/28/21 [Rx] MORPHINE ORAL MANJULA CONC 20mg/mL [Roxanol Oral Soln Conc 20MG/ML] 10 mg PO DAILY@1030 #3 ml 02/28/21 [Rx] MORPHINE ORAL MANJULA CONC 20mg/mL [Roxanol Oral Soln Conc 20MG/ML] 10 mg PO Q2H PRN #2 ml 02/28/21 [Rx] Follow up Appointment(s)/Referral(s): Ajit Lipscomb DO [STAFF PHYSICIAN] - 1 Week Miguelangel Mcfadden MD [Primary Care Provider] - 1-2 days Donn Ricci DO [Doctor of Osteopathic Medicine] - 1 Week Ambulatory/Diagnostic Orders: Complete Blood Count w/diff [LAB.AMB] Time Frame: 2 Days, Location: None Selected Patient Instructions/Handouts: A-fib (Atrial Fibrillation) (DC), After Radial Heart Catheterization (GEN) Activity/Diet/Wound Care/Special Instructions: Cardiology Instructions: -Please follow up at [facility] with Dr. Lipscomb within 1 week. -Please take Eliquis 5mg BID for thromboembolic protection due to your Atrial fibrillation (irregular heart beat) you are more at risk for stroke. -Amiodarone Taper Instructions: 200mg Twice a Day 02/28/21-03/07/21 200mg Daily 03/08/21-03/15/21 100mg daily thereafter starting 03/16/21. -Please take atorvastatin 40mg daily - this is for your cholesterol -Continue Cardizem at 240mg twice a day to control your heart rhythm Patient is returning to [facility] Follow-up with primary care provider on discharge Continue taking medications as prescribed Continue with antibiotics for 4 days and then may discontinue Follow-up with cardiology outpatient Follow-up pulmonary outpatient for further PFT testing Recommend repeat labs in 2-3 days to monitor WBC and kidney functions Discharge Disposition: TRANSFER TO SNF/ECF
--- NOTE | 2021-02-28 13:03 | XR ---
EXAMINATION TYPE: XR chest 1V portable DATE OF EXAM: 02/28/2021 COMPARISON: Chest x-ray 02/24/2021 HISTORY: Dyspnea and shortness of breath TECHNIQUE: Single frontal view of the chest is obtained. FINDINGS: Bones are stable. The patient is rotated post median sternotomy. Heart remains enlarged. T here is some interval blunting the costophrenic angles and interstitium is increased. Central vascula rity again is prominent. No evident pneumothorax. There are overlying leads. Prominent lung volumes c ould be indicative of underlying COPD. IMPRESSION: Correlate for congestive heart failure, pulmonary venous hypertension and interstitial e adrian, there is likely basilar effusion and associated atelectasis versus edema, pneumonia not exclude d.
[2021-02-28] MEDS ORDERED: FUROSEMIDE 10 MG/ML 4 ML VIAL IV STA ×2 (14:42→15:15)
[2021-02-28] MEDS: APIXABAN 5 MG TAB PO SCH ×2 (15:17→20:47)
[2021-02-28] MEDS: ATORVASTATIN 40 MG TAB PO SCH (15:17)
[2021-02-28 17:31] LABS: Glucose,Whole Blood 129 mg/dL (75-99)
[2021-02-28] MEDS: ACETAMINOPHEN TAB 325 MG TAB PO PRN (17:36)
[2021-02-28] MEDS: FORMOTEROL FUMARATE 20 MCG/2 ML NEBU INHALATION SCH (19:05)
[2021-02-28] MEDS: BUDESONIDE 1 MG/2 ML NEBU INHALATION SCH (19:05)
[2021-02-28 20:25] LABS: Glucose,Whole Blood 173 mg/dL (75-99)
[2021-02-28] MEDS: FUROSEMIDE 10 MG/ML 4 ML VIAL IV SCH (20:48)
[2021-02-28] MEDS: ALPRAZolam 0.5 MG TAB PO SCH (20:48)
[2021-03-01 06:59] LABS: Glucose,Whole Blood 135 mg/dL (75-99)
[2021-03-01] MEDS ORDERED: FUROSEMIDE 20 MG TAB PO SCH (07:00)
[2021-03-01] MEDS: IPRATROPIUM-ALBUTEROL 3 ML NEB INHALATION SCH ×4 (07:19→19:08)
[2021-03-01] MEDS: BUDESONIDE 1 MG/2 ML NEBU INHALATION SCH ×2 (07:19→19:08)
[2021-03-01] MEDS: FORMOTEROL FUMARATE 20 MCG/2 ML NEBU INHALATION SCH ×2 (07:19→19:08)
[2021-03-01] MEDS: DILTIAZEM CD 240 MG CAP.ER.24H PO SCH ×2 (07:25→17:55)
[2021-03-01] MEDS: FUROSEMIDE 10 MG/ML 4 ML VIAL IV SCH ×2 (07:25→20:09)
[2021-03-01] MEDS: SENNOSIDES 8.6 MG TAB PO SCH ×2 (07:26→17:47)
[2021-03-01] MEDS: PROCHLORPERAZINE 10 MG TAB PO SCH (07:26)
[2021-03-01] MEDS: ATORVASTATIN 40 MG TAB PO SCH (07:26)
[2021-03-01] MEDS: APIXABAN 5 MG TAB PO SCH ×2 (07:28→20:09)
[2021-03-01] MEDS: POTASSIUM CHLORIDE ER 10 MEQ TAB.ER.PRT PO SCH ×2 (07:28→17:55)
[2021-03-01] MEDS: PANTOPRAZOLE 40 MG TABLET PO SCH ×2 (07:28→17:55)
[2021-03-01] MEDS: INSULIN ASPART (NovoLOG) 100 UNIT/ML VIAL SQ SCH ×4 (07:28→20:18)
[2021-03-01] MEDS: AMIODARONE 200 MG TAB PO SCH ×2 (07:28→20:09)
[2021-03-01] MEDS: ASPIRIN 81 MG PO SCH (07:29)
--- NOTE | 2021-03-01 08:59 | P.PN ---
Subjective Patient is a pleasant 80-year-old female with history of COPD on 4 L home oxygen, coronary artery disease status post 4 vessel CABG 2000 (ALARCON to LAD, vein graft to diagonal, OM1 and RCA distal), hypertension, hyperlipidemia, persistent atrial fibrillation with attempted cardioversion in 2019, arthritis, anemia. She used to follow with client development manager at [facility] in [place], but states she has not followed with a client development manager in about 8-10 years. Patient presents to the emergency department secondary to chest pain for approximately one week. On admission, she stated that it felt similar to her prior CABG and which she gets fairly often which has been fairly constant over the last 1 week. On presentation with she was found to be in A. fib with mild RVR, heart rate since admission have been 90s to 110s. She was placed on her home Cardizem 180 mg twice a day as well as her home Lasix 80 mg daily and given steroids. troponin negative 3, proBNP 1190. Records obtained from [facility]: Patient was previously hospitalized at [facility] in [place] in December-January 2019. She presented with shortness of breath and palpitations she was found to be in atrial fibrillation with RVR. She was started on IV Cardizem drip. An echo was performed which showed an EF 55-60%. She underwent a nuclear stress test on which revealed no reversible ischemia, small area of possible coronary infarct, LVEF 67%, no wall motion abnormality. She also underwent CHICA and cardioversion which was successful however within 2 hours she converted back to atrial fibrillation with RVR. Her CHICA revealed an LVEF 5560 percent, mildly dilated LA, no evidence of pericardial effusion, mild aortic valve sclerosis. She was transitioned to Cardizem 180 mg twice a day and bisoprolol 5 mg daily. 02/27/21: Patient underwent cardiac catheterization with Dr. Lipscomb which revealed left main 4050 percent stenosis, LAD 20-30% stenosis, ramus 5060%, circumflex 100% stenosis, RCA 50-60% stenosis (iFR normal). Patent SVG to OM, SVG to ramus. Occluded ALARCON and SVG to RCA, possibly related to nonsignificant stenosis. Low normal left sided filling pressures. Recommend medical therapy. 03/01/21 Patient seen and examined at bedside. No acute distress. She denies chest pain, lightheadedness, dizziness, palpitations. She does continue to have some shortness of breath. Telemetry reviewed patient continues to be in atrial fibrillation with better controlled ventricular rates, occasionally HR is low 100s. Laboratory data pending for today. She is currently maintained on aspirin 81 mg daily, Eliquis 5 mg twice a day, amiodarone 200 mg twice a day, Patient was started on IV Lasix 40mg BID. PHYSICAL EXAMINATION Blood pressure 136/83, heart rate 100, afebrile, Saturations on 5 L nasal cannula. CONSTITUTIONAL: No apparent distress, frail on O2 HEENT: Neck Supple. No JVD. No carotid bruit. CHEST EXAMINATION: Lungs are mild crackles in the bases to auscultation. No chest wall tenderness is noted on palpation or with deep breathing. HEART EXAMINATION: Irregular rate and rhythm. S1, S2 heard. No murmurs, gallops or rub. ABDOMEN: Soft, nontender. Positive bowel sounds. EXTREMITIES: 2+ peripheral pulses, no lower extremity edema and no calf tenderness. SKIN: Left wrist cath site clean dry intact no hematoma 2+ pulses NEUROLOGIC EXAMINATION: Patient is awake, alert and oriented x3. ASSESSMENT Unstable angina Coronary artery disease status post 4 vessel CABG in 1999 Acute on chronic respiratory failure component of chronic COPD however additional component of angina Persistent atrial fibrillation with mild RVR - Patient states she was taken off Eliquis, but unsure why. She does have history of anemia. She denies any problems when taking Eliquis Chronic diastolic heart failure, appears euvolemic on exam. COPD on home O2 Hypertension Hyperlipidemia Anemia, likely iron deficiency and has been off of any anticoagulation or antiplatelets PLAN -Continue Eliquis 5mg BID for thromboembolic protection -Continue atorvastatin 40mg daily -Continue amiodarone 200mg BID -Cardizem 240mg BID -Recommend discontinuing IV Lasix and transition to PO -From a cardiology perspective patient is stable to be discharged home. Educated patient on close follow up with cardiology and pulmonary. Recommend patient follow up with Dr. Lipscomb in 1 week. Objective - Vital Signs Vital signs: Vital Signs Temp 98.3 F 03/01/21 07:00 Pulse 104 H 03/01/21 07:44 Resp 21 03/01/21 07:00 BP 136/83 03/01/21 07:00 Pulse Ox 92 L 03/01/21 07:00 Intake & Output 02/28/21 03/01/21 03/01/21 18:59 06:59 18:59 Output Total 1600 Balance -1600 Output: Urine 1600 Other: Voiding Method Bedside Commode External Catheter # Voids 1 2 # Bowel Movements 0 - Labs CBC & Chem 7: 02/27/21 05:06 02/28/21 05:40 Labs: Abnormal Lab Results - Last 24 Hours (Table) 02/28/21 02/28/21 02/28/21 Range/Units 12:29 17:29 20:22 POC Glucose (mg/dL) 160 H 129 H 173 H (75-99) mg/dL 03/01/21 Range/Units 06:58 POC Glucose (mg/dL) 135 H (75-99) mg/dL
[2021-03-01] MEDS: METOPROLOL TARTRATE 25 MG TAB PO SCH ×2 (09:09→20:09)
--- NOTE | 2021-03-01 09:25 | XR ---
EXAMINATION TYPE: XR chest 1V portable DATE OF EXAM: 03/01/2021 COMPARISON: Chest x-ray 02/28/2021 HISTORY: Shortness of breath TECHNIQUE: Single frontal view of the chest is obtained. FINDINGS: Patient is post median sternotomy and the heart is enlarged. Interstitium is increased. No evident pneumothorax. Blunting the costophrenic angles persists. Patchy basilar density is noted. Th e aorta is dense. IMPRESSION: Findings are similar to prior exam. Correlate for possible congestive heart failure, pne umonia is not excluded, there may be small basilar effusions.
[2021-03-01 09:36] LABS: African American GFR (CKD) 64 (>60 ml/min/1.73 sqM); Anion Gap 8 mmol/L; Blood Urea Nitrogen 23 mg/dL (7-17); Calcium 9.3 mg/dL (8.4-10.2); Chloride 88 mmol/L (98-107); Glucose 134 mg/dL (74-99); Non-African American GFR(CKD) 56 (>60 ml/min/1.73 sqM); Potassium 3.6 mmol/L (3.5-5.1); Sodium 136 mmol/L (137-145)
[2021-03-01 09:48] LABS: Carbon Dioxide 40 mmol/L (22-30)
[2021-03-01 09:49] LABS: HCT 35.6 % (34.0-46.0); HGB 10.8 gm/dL (11.4-16.0); RBC 4.88 m/uL (3.80-5.40); WBC 17.7 k/uL (3.8-10.6)
[2021-03-01 09:50] LABS: Anisocytosis Slight; Basophils % (A) 0 %; Eosinophils # (A) 0.4 k/uL (0-0.7); Eosinophils % (A) 2 %; Hypochromasia Moderate; Lymphocytes # (A) 2.1 k/uL (1.0-4.8); Lymphocytes % (A) 12 %; MCH 22.1 pg (25.0-35.0); MCHC 30.2 g/dL (31.0-37.0); Mean Platelet Volume 7.5; Microcytosis Moderate; Monocytes # (A) 1.2 k/uL (0-1.0); Monocytes % (A) 7 %; Neutrophils # (A) 13.8 k/uL (1.3-7.7); Neutrophils % (A) 78 %; Platelet Count 391 k/uL (150-450); RDW 17.6 % (11.5-15.5)
[2021-03-01] MEDS: MORPHINE ORAL SOLN 10 MG/5 ML CUP PO SCH (10:34)
[2021-03-01 11:57] LABS: Glucose,Whole Blood 141 mg/dL (75-99)
--- NOTE | 2021-03-01 14:07 | P.PN ---
Subjective Progress Note Date: 03/01/21 This is an 80-year-old female who was recently admitted with left-sided chest pain scheduled to undergo cardiac catheterization today with cardiology. Patient also being followed by pulmonary for an acute exacerbation of chronic obstructive pulmonary disease. Patient wears 4 L nasal cannula in the outp atient setting and denies any worsening shortness of breath. Patient states the shortness of breath occurs with minimal exertion and patient has continued cough with phlegm production that is clear and frothy in nature. White blood count is 18.2 and hemoglobin is 9.7, platelets are 408. Sodium is 137 with a potassium of 3.8 and current creatinine is 1.02. Blood sugar slightly elevated and will continue sliding scale and monitor Accu-Cheks before meals and at bedtime. Patient also continues on IV ceftriaxone and urine cultures finalized showing apparent skin and urogenital stanislav. 03/01/2021 Patient is seen in follow-up today continues to be short of breath maintained on 5 L via nasal cannula and normally wears 4 L in the outpatient setting. Patient was placed on 40 mg IV Lasix twice daily yesterday and repeat chest x-ray today shows similar findings to previous exam with possible CHF and may be a small basilar effusion and will continue on IV Lasix for an additional 24 hours of close monitoring and follow-up in the morning. White blood count trending down at 17.7, sodium is 136, potassium is 3.6, creatinine is improved at 0.96. Recommend to continue with breathing inhalational treatments and as needed albuterol and continue on IV Lasix twice daily and patient is currently maintained on IV ceftriaxone. Patient is having some chest congestion she states and will also add Mucinex. Review of systems: Constitutional: No reports of fatigue, fever, or chills Cardiovascular: No reports of chest pain or palpitations Respiratory: reports intermittent shortness of breath and continued cough GI: No reports of nausea, vomiting, or diarrhea : No reports of dysuria or retention Neurovascular: reports of generalized weakness All medications have been reviewed Active Medications Acetaminophen (Acetaminophen Tab 325 Mg Tab) 650 mg PO Q6HR PRN PRN Reason: Mild Pain or Fever > 100.5 Last Admin: 02/28/21 17:36 Dose: 650 mg Documented by: Al Hydroxide/Mg Hydroxide (Mag Hydrox/Al Hydrox/Simeth 30 Ml Cup) 10 ml PO Q4H PRN PRN Reason: GI Upset Albuterol/Ipratropium (Ipratropium-Albuterol 3 Ml Neb) 3 ml INHALATION RT-Q2H PRN PRN Reason: Shortness Of Breath Or Wheezing Last Admin: 02/28/21 15:08 Dose: 3 ml Documented by: Albuterol/Ipratropium (Ipratropium-Albuterol 3 Ml Neb) 3 ml INHALATION RT-QID [facility] Last Admin: 03/01/21 11:38 Dose: 3 ml Documented by: Alprazolam (Alprazolam 0.5 Mg Tab) 0.5 mg PO HS@2100 [facility] Last Admin: 02/28/21 20:48 Dose: 0.5 mg Documented by: Alprazolam (Alprazolam 0.25 Mg Tab) 0.25 mg PO Q6HR PRN PRN Reason: Mild Anxiety Amiodarone HCl (Amiodarone 200 Mg Tab) 200 mg PO BID [facility] Last Admin: 03/01/21 07:28 Dose: 200 mg Documented by: Apixaban (Apixaban 5 Mg Tab) 5 mg PO BID [facility]; Protocol Last Admin: 03/01/21 07:28 Dose: 5 mg Documented by: Aspirin (Aspirin 81 Mg) 81 mg PO DAILY [facility] Last Admin: 03/01/21 07:29 Dose: 81 mg Documented by: Atorvastatin Calcium (Atorvastatin 40 Mg Tab) 40 mg PO DAILY [facility] Last Admin: 03/01/21 07:26 Dose: 40 mg Documented by: Bisacodyl (Bisacodyl 10 Mg Supp) 10 mg RECTAL Q72H PRN PRN Reason: Constipation Budesonide (Budesonide 1 Mg/2 Ml Nebu) 1 mg INHALATION RT-BID [facility] Last Admin: 03/01/21 07:19 Dose: 1 mg Documented by: Diltiazem HCl (Diltiazem Cd 240 Mg Cap.Er.24h) 240 mg PO BID@0700,1700 [facility] Last Admin: 03/01/21 07:25 Dose: 240 mg Documented by: Fluticasone Propionate (Fluticasone 50mcg/Combs Nasal 16gm) 1 spray EA NOSTRIL Q12H PRN PRN Reason: Allergy Symptoms Formoterol Fumarate (Formoterol Fumarate 20 Mcg/2 Ml Nebu) 20 mcg INHALATION RT-BID [facility] Last Admin: 03/01/21 07:19 Dose: 20 mcg Documented by: Furosemide (Furosemide 10 Mg/Ml 4 Ml Vial) 40 mg IV Q12HR [facility] Ceftriaxone Sodium 1 gm/ (Sodium Chloride) 50 mls @ 100 mls/hr IVPB Q24HR [facility] Last Admin: 03/01/21 07:29 Dose: 100 mls/hr Documented by: Insulin Aspart (Insulin Aspart (Novolog) 100 Unit/Ml Vial) 0 unit SQ ACHS [facility]; Protocol Last Admin: 03/01/21 13:18 Dose: 2 unit Documented by: Magnesium Hydroxide (Magnesium Hydroxide 2,400 Mg/10 Ml Cup) 2,400 mg PO Q48H PRN PRN Reason: Constipation Metoprolol Tartrate (Metoprolol Tartrate 25 Mg Tab) 25 mg PO BID [facility] Last Admin: 03/01/21 09:09 Dose: 25 mg Documented by: Morphine Sulfate (Morphine Oral Soln 10 Mg/5 Ml Cup) 10 mg PO DAILY@1030 [facility] Last Admin: 03/01/21 10:34 Dose: Not Given Documented by: Morphine Sulfate (Morphine Oral Soln 10 Mg/5 Ml Cup) 10 mg PO Q6H PRN PRN Reason: Pain Naloxone HCl (Naloxone 0.4 Mg/Ml 1 Ml Vial) 0.2 mg IV Q2M PRN PRN Reason: Opioid Reversal Nitroglycerin (Nitroglycerin Sl Tabs 0.4 Mg Tab) 0.4 mg SUBLINGUAL Q5M PRN PRN Reason: Chest Pain Ondansetron HCl (Ondansetron 4 Mg/2 Ml Vial) 4 mg IVP Q8HR PRN PRN Reason: Nausea And Vomiting Pantoprazole Sodium (Pantoprazole 40 Mg Tablet) 40 mg PO AC-BID [facility] Last Admin: 03/01/21 07:28 Dose: 40 mg Documented by: Polyethylene Glycol (Polyethylene Glycol 3350 17 Gm Powd.Pack) 17 gm PO DAILY@1430 [facility] Last Admin: 02/27/21 16:30 Dose: 17 gm Documented by: Potassium Chloride (Potassium Chloride Er 10 Meq Tab.Er.Prt) 10 meq PO BID@0700,1700 [facility] Last Admin: 03/01/21 07:28 Dose: 10 meq Documented by: Prochlorperazine Maleate (Prochlorperazine 10 Mg Tab) 10 mg PO DAILY@0700 [facility] Last Admin: 03/01/21 07:26 Dose: 10 mg Documented by: Toma (Sennosides 8.6 Mg Tab) 8.6 mg PO BID@0700,1700 [facility] Last Admin: 03/01/21 07:26 Dose: 8.6 mg Documented by: Sodium Biphosphate/Sodium Phosphate (Na Phos,M-B/Na Phos,Di-Ba 133 Ml Enema) 133 ml RECTAL Q96H PRN PRN Reason: Constipation Physical exam: Gen: This is a 80-year-old female awake, alert and oriented 3, well-developed, well-nourished. HEENT: Head is atraumatic, normocephalic. Pupils equal, round. Sclerae is anict stephani. NECK: Supple. No JVD. No lymphadenopathy. No thyromegaly. LUNGS: Diminished breath sounds bilaterally with some scattered rhonchi noted on exam. Clear frothy phlegm production on exam as well. No intercostal retractions. HEART: S1, S2 are muffled ABDOMEN: Soft. Bowel sounds are present. No masses. No tenderness. EXTREMITIES: No pedal edema. No calf tenderness. NEUROLOGICAL: Patient is awake, alert and oriented x3. Diffusely weak with no focal deficits noted. Assessment: Left-sided chest pain possible unstable angina, ruled out acute coronary event Chronic obstructive pulmonary disease, mild acute exacerbation with hypercarbia an acute hypoxic hypercarbic respiratory failure Acute on chronic congestive heart failure with diastolic dysfunction, EF 45-50%, acute exacerbation Acute urinary tract infection, present on admission Increased white blood count, improving Anemia, microcytic elevated CO2 Chronic hypoxic hypercarbic respiratory failure on home O2 History of atrial fibrillation History of chest pain, angina History of coronary disease, coronary artery bypass grafting History of chronic obstructive pulmonary disease remote history of nicotine dependence Full code Plan: Recommend to continue with current medications and management. Cardiology and pulmonary following closely and patient is maintained on breathing inhalational treatments along with IV ceftriaxone and will continue. Patient continues to be dyspneic and currently maintained on 5 L via nasal cannula and chest x-ray continues to show CHF and will continue with IV Lasix 40 mg twice daily for an additional 24 hours as patient continues to be short of breath. Patient also having some congestion and will add Mucinex and recommend to continue with breathing inhalational treatments. Patient resides at [facility] and will be returning on there once stabilized discharged and social work following. Due to multiple complex medical issues, prognosis is guarded. Possible discharge in 24-48 hours. Objective - Vital Signs Vital signs: Vital Signs Temp 98.3 F 03/01/21 07:00 Pulse 104 H 03/01/21 07:44 Resp 21 03/01/21 07:00 BP 136/83 03/01/21 07:00 Pulse Ox 92 L 03/01/21 07:00 Intake & Output 02/28/21 03/01/21 03/01/21 18:59 06:59 18:59 Output Total 1600 Balance -1600 Output: Urine 1600 Other: Voiding Method Bedside Commode External Catheter # Voids 1 2 # Bowel Movements 0 - Labs CBC & Chem 7: 03/01/21 08:57 03/01/21 08:57 Labs: Abnormal Lab Results - Last 24 Hours (Table) 02/28/21 02/28/21 02/28/21 Range/Units 12:29 17:29 20:22 POC Glucose (mg/dL) 160 H 129 H 173 H (75-99) mg/dL 03/01/21 Range/Units 06:58 POC Glucose (mg/dL) 135 H (75-99) mg/dL
[2021-03-01] MEDS: guaiFENesin 600 MG TABLET.ER PO SCH ×2 (15:08→20:09)
[2021-03-01] MEDS: polyethylene glycoL 3350 17 GM POWD.PACK PO SCH (15:10)
--- NOTE | 2021-03-01 15:50 | P.PN ---
Subjective Progress Note Date: 03/01/21 Principal diagnosis: Chest pain 80-year-old female who is admitted to the hospital with complaints of chest discomfort, and nausea. The chest pain was substernal in nature. She was seen in the emergency department on February 24. The patient was admitted to the [address] [place] [address]. We were asked to see the patient is a patient has been previously diagnosed with COPD. She apparently has never seen a lung doctor in the past. The patient apparently smoked for 40 years at about a pack or pack and a half a day. Anyway, the patient does not take any breathing medications at home on a regular basis. She does use oxygen at 3-4 L/m . The patient was seen by cardiology. Her primary issue is that of chest discomfort. She is chronically short of breath with any activity. She's pretty much at baseline though. She denies any cough, wheezing, phlegm production, chest congestion, fever, or chills. The patient in addition to COPD, has a history of CAD, prior bypass grafting, coronary disease, and heart failure. Family history is negative for cardiac disease although apparently there is a family history of kidney issues. White count 18.1, hemoglobin 10.1, hematocrit 34.6, and platelet count 404,000. PT and INR are normal. PTT is 44.8. Sodium 137, potassium 3.8, chlorides 89, CO2 39, anion gap 9, BUN 42, and creatinine 1.08. Based on the bicarbonate concentration of 39, the patient is likely a CO2 retainer, with a baseline CO2 of 68, plus or minus 2 mmHg. Chest x-ray shows some cardiomegaly, and some patchy atelectatic changes in both lungs. Progress note dated 02/27/2021. The patient was admitted with a diagnosis of chest pain. The patient is to have a cardiac catheterization today with Dr. Lipscomb. The patient most likely has underlying significant COPD, based on her smoking history, examination, symptoms, and the fact, that she is likely a CO2 retainer. The patient will need an outpatient evaluation including complete pulmonary function tests, and a 6 minute walk distance. Currently, she is resting comfortably. White count 18.2, hemoglobin 9.7, hematocrit 32 and platelet count 488,000. PTT is 50.3. Sodium and potassium are normal. Chloride 90, CO2 37, anion gap 10, BUN 51, and creatinine 1.02. Chest x-ray from the was already reviewed. Progress note dated 02/28/2021. This is an 80-year-old female with a history of chest pain. The patient underwent cardiac catheterization. I did read the report. Patient is going be treated medically, with very aggressive risk factor modification. In addition, the patient is currently on a blood thinner, and might be considered for a cardioversion down the road. The patient did smoke many years, and likely has underlying significant COPD. The patient likely has at least stage III COPD, based on the fact that she is a retainer of carbon dioxide. We talked about her coming to the office after discharge, for pulmonary function testing in 6 minute walk distance, and she doesn't sound too enthused about that. She also was not too enthused about what cardiology had to say about her. Sodium is 139, potassium 4.2, chlorides 97, CO2 36, anion gap 6, BUN 33, creatinine 1.13. Chest x-ray shows some mild basilar atelectasis, and small bilateral effusions. The patient is seen today 03/01/2021 in follow-up on the regular medical floor. She is currently resting in bed. Awake and alert in no acute distress. She is maintaining O2 saturations in the 90s on 5 L/m per nasal cannula. No worsening shortness of breath, cough or congestion or chest x-ray is stable with some possible congestive heart failure versus pneumonia with small pleural effusions. Urine culture revealed no growth. White count 17.7. Hemoglobin 10.8. Sodium 136. Potassium 3.6. Creatinine 0.96. Glucose 134. She remains on DuoNeb inhalations, Pulmicort and Perforomist inhalations, antibiotics in the form of ceftriaxone, IV diuretics. Anticoagulated with Eliquis. Objective - Vital Signs Vital signs: Vital Signs Temp 98.3 F 03/01/21 14:41 Pulse 99 03/01/21 14:41 Resp 19 03/01/21 14:41 BP 115/62 03/01/21 14:41 Pulse Ox 91 L 03/01/21 14:41 Intake & Output 02/28/21 03/01/21 03/01/21 18:59 06:59 18:59 Intake Total 360 Output Total 1600 700 Balance -1600 -340 Intake: Oral 360 Output: Urine 1600 700 Other: Voiding Method Bedside Commode External Catheter # Voids 1 2 # Bowel Movements 0 2 - Exam GENERAL EXAM: Alert, 80-year-old female patient, on 5 L nasal cannula, comfortable in no apparent distress. HEAD: Normocephalic. EYES: Normal reaction of pupils, equal size. NOSE: Clear with pink turbinates. THROAT: No erythema or exudates. NECK: No masses, no JVD. CHEST: No chest wall deformity. LUNGS: Equal air entry with crackles in the bilateral bases. CVS: S1 and S2 normal with no audible murmur, irregular rhythm. ABDOMEN: No hepatosplenomegaly, normal bowel sounds, no guarding or rigidity. SPINE: No scoliosis or deformity SKIN: No rashes CENTRAL NERVOUS SYSTEM: No focal deficits, tone is normal in all 4 extremities. EXTREMITIES: There is no peripheral edema. No clubbing, no cyanosis. Anna pheral pulses are intact. - Labs CBC & Chem 7: 03/01/21 08:57 03/01/21 08:57 Labs: Abnormal Lab Results - Last 24 Hours (Table) 02/28/21 02/28/21 03/01/21 Range/Units 17:29 20:22 06:58 WBC (3.8-10.6) k/uL Hgb (11.4-16.0) gm/dL MCV (80.0-100.0) fL MCH (25.0-35.0) pg MCHC (31.0-37.0) g/dL RDW (11.5-15.5) % Neutrophils # (1.3-7.7) k/uL Monocytes # (0-1.0) k/uL Sodium (137-145) mmol/L Chloride (98-107) mmol/L Carbon Dioxide (22-30) mmol/L BUN (7-17) mg/dL Glucose (74-99) mg/dL POC Glucose (mg/dL) 129 H 173 H 135 H (75-99) mg/dL 03/01/21 03/01/21 03/01/21 Range/Units 08:57 08:57 11:56 WBC 17.7 H (3.8-10.6) k/uL Hgb 10.8 L (11.4-16.0) gm/dL MCV 73.0 L (80.0-100.0) fL MCH 22.1 L (25.0-35.0) pg MCHC 30.2 L (31.0-37.0) g/dL RDW 17.6 H (11.5-15.5) % Neutrophils # 13.8 H (1.3-7.7) k/uL Monocytes # 1.2 H (0-1.0) k/uL Sodium 136 L (137-145) mmol/L Chloride 88 L (98-107) mmol/L Carbon Dioxide 40 H (22-30) mmol/L BUN 23 H (7-17) mg/dL Glucose 134 H (74-99) mg/dL POC Glucose (mg/dL) 141 H (75-99) mg/dL Assessment and Plan Assessment: 1 Chest pain, currently being evaluated by cardiology, with cardiac catheterization planned for February 27. Patient did not require any stent. The patient will be treated medically. 2 Chronic obstructive pulmonary disease, likely quite severe, as the patient is a CO2 retainer, with a calculated expected PaCO2 of 68, plus or minus 2 mmHg. 3 Previous history of 40 years of tobacco use. 4 History of CAD, status post CABG. 5 History of heart failure. 6 History of atrial fibrillation. 7 History of hypertension. 8 History of chronic anemia. Plan: The patient was seen and evaluated by Dr. Ricci Improved from the pulmonary standpoint Titrate down the FiO2 as tolerated May require home oxygen Continue the current treatment plan I, the cosigning physician, performed a history & physical examination of the patient. Lungs sounds with crackles in the bilateral posterior bases. Maintaining good O2 saturations in the 90s on 5 L/m per nasal cannula. I discussed the assessment and plan of care with my nurse practitioner, Cyndee Lai. I attest to the above note as dictated by her.
[2021-03-01 17:09] LABS: Glucose,Whole Blood 118 mg/dL (75-99)
[2021-03-01] MEDS: ALPRAZolam 0.5 MG TAB PO SCH (20:09)
[2021-03-01 20:17] LABS: Glucose,Whole Blood 140 mg/dL (75-99)
[2021-03-01 23:04] VITALS: RESP 18
[2021-03-02 06:13] LABS: Glucose,Whole Blood 124 mg/dL (75-99)
[2021-03-02] MEDS: INSULIN ASPART (NovoLOG) 100 UNIT/ML VIAL SQ SCH ×2 (06:14→12:55)
[2021-03-02] MEDS: PROCHLORPERAZINE 10 MG TAB PO SCH (06:19)
[2021-03-02] MEDS: PANTOPRAZOLE 40 MG TABLET PO SCH (06:19)
[2021-03-02] MEDS: DILTIAZEM CD 240 MG CAP.ER.24H PO SCH (06:19)
[2021-03-02] MEDS: POTASSIUM CHLORIDE ER 10 MEQ TAB.ER.PRT PO SCH (06:19)
[2021-03-02] MEDS: SENNOSIDES 8.6 MG TAB PO SCH (06:19)
[2021-03-02] MEDS: FORMOTEROL FUMARATE 20 MCG/2 ML NEBU INHALATION SCH (07:46)
[2021-03-02] MEDS: BUDESONIDE 1 MG/2 ML NEBU INHALATION SCH (07:46)
[2021-03-02] MEDS: IPRATROPIUM-ALBUTEROL 3 ML NEB INHALATION SCH ×2 (07:46→12:13)
[2021-03-02 08:23] LABS: Calcium 9.3 mg/dL (8.4-10.2); Potassium 3.7 mmol/L (3.5-5.1)
[2021-03-02] MEDS: AMIODARONE 200 MG TAB PO SCH (08:27)
[2021-03-02] MEDS: ATORVASTATIN 40 MG TAB PO SCH (08:27)
[2021-03-02] MEDS: METOPROLOL TARTRATE 25 MG TAB PO SCH (08:27)
[2021-03-02] MEDS: APIXABAN 5 MG TAB PO SCH (08:27)
[2021-03-02] MEDS: ASPIRIN 81 MG PO SCH (08:27)
[2021-03-02] MEDS: guaiFENesin 600 MG TABLET.ER PO SCH (08:32)
[2021-03-02] MEDS: FUROSEMIDE 10 MG/ML 4 ML VIAL IV SCH (08:32)
[2021-03-02 09:58] VITALS: BP 120/56; PULSE 92; TEMP 98.5
--- NOTE | 2021-03-02 11:12 | P.DS ---
Providers Date of admission: 02/26/21 08:15 Expected date of discharge: 03/02/21 Attending physician: Israel Dobbs Consults: 02/24/21 16:03 Consult Physician Routine Consulting Provider: [facility] Consult Reason/Comments: chest pain, heart failure exacerbation, history of afib Do you want consulting provider notified?: Yes 02/25/21 19:10 Consult Physician Routine Consulting Provider: Raul Humphrey Consult Reason/Comments: copd Do you want consulting provider notified?: Yes Primary care physician: Miguelangel Mcfadden Hospital Course: Final Diagnosis Left-sided chest pain possible unstable angina, ruled out acute coronary event Acute on chronic congestive heart failure with diastolic dysfunction, EF 45-50%, acute exacerbation Chronic obstructive pulmonary disease, mild acute exacerbation with hypercarbia an acute hypoxic hypercarbic respiratory failure Acute urinary tract infection, present on admission Increased white blood count Anemia, microcytic elevated CO2 Chronic hypoxic hypercarbic respiratory failure on home O2 History of atrial fibrillation History of chest pain, angina History of coronary disease, coronary artery bypass grafting History of congestive heart failure History of chronic obstructive pulmonary disease remote history of nicotine dependence Full code Discharge disposition Patient is being discharged in a stable condition with guarded prognosis to [facility]. Patient will follow-up with Dr. Miguelangel Mcfadden in the outpatient setting upon discharge. Patient to continue with oral Ceftin 500 mg twice daily for the next 4 days and then may discontinue. Total time taken is greater than 35 minutes. Hospital course This is an 80-year-old female who was recently admitted with left-sided chest pain scheduled to undergo cardiac catheterization today with cardiology. Patient also being followed by pulmonary for an acute exacerbation of chronic obstructive pulmonary disease. Patient wears 4 L nasal cannula in the outpatient setting and denies any worsening shortness of breath. Patient states the shortness of breath occurs with minimal exertion and patient has continued cough with phlegm production that is clear and frothy in nature. White blood count is 18.2 and hemoglobin is 9.7, platelets are 408. Sodium is 137 with a potassium of 3.8 and current creatinine is 1.02. Blood sugar slightly elevated and will continue sliding scale and monitor Accu-Cheks before meals and at bedtime. Patient also continues on IV ceftriaxone and urine cultures finalized showing apparent skin and urogenital stanislav. 02/28/2021 Patient is seen and evaluated and follow-up continues to have some shortness of breath which is chronic and maintained on 4 L via nasal cannula. Pulmonary along with cardiology evaluated the patient and underwent cardiac catheterization recommending maximum medical management and close outpatient follow-up. She also needs further testing if PFT with pulmonary outpatient. Patient will continue on reading inhalational treatments along with oral Ceftin 500 mg twice daily for the next 4 days and then may discontinue. Recommend repeat labs to monitor WBC and kidney functions. Currently no reports of chest pain, worsening shortness of breath, or palpitations. Patient is afebrile. No reports of nausea or vomiting and patient is tolerating diet. Patient will be going to [facility] today. Guarded prognosis 02/28/2021 Patient continued to be short of breath and had chest x-ray which shows CHF with pulmonary venous hypertension interstitial edema likely basilar effusion and associated atelectasis versus edema and will be given a dose of IV Lasix now and continued on IV Lasix with repeat chest x-ray in the morning. Discharge has been canceled and will continue to monitor closely. 03/01/2021 Patient is seen in follow-up today continues to be short of breath maintained on 5 L via nasal cannula and normally wears 4 L in the outpatient setting. Patient was placed on 40 mg IV Lasix twice daily yesterday and repeat chest x-ray today shows similar findings to previous exam with possible CHF and may be a small basilar effusion and will continue on IV Lasix for an additional 24 hours of close monitoring and follow-up in the morning. White blood count trending down at 17.7, sodium is 136, potassium is 3.6, creatinine is improved at 0.96. Recommend to continue with breathing inhalational treatments and as needed albuterol and continue on IV Lasix twice daily and patient is currently maintained on IV ceftriaxone. Patient is having some chest congestion she states and will also add Mucinex. 03/02/2021 She is seen in follow-up today no acute overnight issues. Patient has been diuresed on IV Lasix and will transition to oral Lasix and recommend continuing with 40 mg twice daily and close outpatient follow-up with cardiology and pulmonary and recommend repeat labs in 2-3 days to monitor kidney functions. Patient will also continue on oral Ceftin 500 mg twice daily for the next 4 days and then may discontinue. Currently no reports of chest pain, worsening shortness of breath, or palpitations. Patient is afebrile. No reports of n ausea or vomiting and patient is tolerating diet. Patient will be going to [facility] today. Guarded prognosis. Gen: This is a 80-year-old female awake, alert and oriented 3, well-developed, well-nourished. Temp is 98.5F, pulse is 92, respirations are 18, blood pressure is 120/56, oxygen saturation is 95% on 5 L via nasal cannula HEENT: Head is atraumatic, normocephalic. Pupils equal, round. Sclerae is anicteric. NECK: Supple. No JVD. No lymphadenopathy. No thyromegaly. LUNGS: Diminished breath sounds bilaterally with some scattered rhonchi and coughing noted on exam. Clear frothy phlegm production on exam as well. No intercostal retractions. HEART: S1, S2 are muffled ABDOMEN: Soft. Bowel sounds are present. No masses. No tenderness. EXTREMITIES: No pedal edema. No calf tenderness. NEUROLOGICAL: Patient is awake, alert and oriented x3. Diffusely weak with no focal deficits noted. Please refer to medication reconciliation sheet for a list of medications. Patient Condition at Discharge: Fair Plan - Discharge Summary Discharge Rx Participant: No New Discharge Prescriptions: New Ipratropium-Albuterol Nebulize [Duoneb 0.5 mg-3 mg/3 ml Soln] 3 ml INHALATION RT-Q2H PRN ml PRN Reason: Shortness Of Breath Or Wheezing Formoterol Fumarate [Perforomist] 20 mcg INHALATION RT-BID ml Furosemide [Lasix] 40 mg PO BID 30 Days #60 tablet guaiFENesin [Mucinex] 600 mg PO Q12HR PRN tablet PRN Reason: Cough Apixaban [Eliquis] 5 mg PO BID 30 Days #60 tab Diltiazem Cd [Cardizem CD] 240 mg PO BID@0700,1700 Amiodarone [Cordarone] 200 mg PO BID tab Atorvastatin [Lipitor] 40 mg PO DAILY tab Budesonide [Pulmicort] 1 mg INHALATION RT-BID ml Cefuroxime Axetil [Ceftin] 500 mg PO BID 4 Days #8 tab Ipratropium-Albuterol Nebulize [Duoneb 0.5 mg-3 mg/3 ml Soln] 3 ml INHALATION RT-QID ml Metoprolol Tartrate [Lopressor] 25 mg PO BID tab Continue Albuterol Nebulized [Ventolin Nebulized] 2.5 mg INHALATION RT-Q4H PRN PRN Reason: Shortness Of Breath Fluticasone Nasal [place] [Flonase Nasal [place]] 1 spray EA NOSTRIL Q12H PRN PRN Reason: Allergy Symptoms Mag Hydrox/Aluminum Hyd/Simeth [Mylanta Maximum Strength Liq] 10 ml PO Q4H PRN PRN Reason: Gi Upset MORPHINE ORAL MANJULA CONC 20mg/mL [Roxanol Oral Soln Conc 20MG/ML] 5 mg PO Q2H PRN PRN Reason: Pain Na Phos,M-B/Na Phos,Di-Ba [Fleet Adult] 133 ml RECTAL Q96H PRN PRN Reason: Constipation Nitroglycerin Sl Tabs [Nitrostat] 0.4 mg SUBLINGUAL Q5M PRN PRN Reason: Chest Pain Omeprazole [PriLOSEC] 20 mg PO BID@0530,1830 Prochlorperazine [Compazine] 10 mg PO Q6H PRN PRN Reason: Nausea And Vomiting Sennosides/Docusate Sodium [Senna Plus 8.6-50 mg Softgel] 1 cap PO BID@0700,1700 MORPHINE ORAL MANJULA CONC 20mg/mL [Roxanol Oral Soln Conc 20MG/ML] 10 mg PO Q2H PRN #2 ml PRN Reason: Pain Prochlorperazine [Compazine] 10 mg PO DAILY@0700 Polyethylene Glycol 3350 [Miralax] 17 gm PO DAILY@1430 Meloxicam 7.5 mg PO DAILY@0700 Acetaminophen [Tylenol] 1,000 mg PO DAILY@1500 Acetaminophen Tab [Tylenol] 1,000 mg PO BID PRN PRN Reason: Pain bisacodyL [Dulcolax] 10 mg RECTAL Q72H PRN PRN Reason: Constipation Magnesium Hydroxide [Milk of Magnesia] 2,400 mg PO Q48H PRN PRN Reason: Constipation Potassium Chloride ER [K-Dur 10] 10 meq PO BID@0700,1700 MORPHINE ORAL MANJULA CONC 20mg/mL [Roxanol Oral Soln Conc 20MG/ML] 10 mg PO DAILY@1030 #3 ml ALPRAZolam [Xanax] 0.5 mg PO HS@2100 #4 tab Discontinued Furosemide [Lasix] 80 mg PO DAILY@0700 metOLazone [Zaroxolyn] 2.5 mg PO DAILY@0530 Albuterol Nebulized [Ventolin Nebulized] 2.5 mg INHALATION RT-BID@0730,1600 Diltiazem HCl [Diltiazem HCl 24Hr ER (XR)] 180 mg PO BID@0700,1700 Discharge Medication List Acetaminophen Tab [Tylenol] 1,000 mg PO BID PRN 02/24/21 [History] Acetaminophen [Tylenol] 1,000 mg PO DAILY@1500 02/24/21 [History] Albuterol Nebulized [Ventolin Nebulized] 2.5 mg INHALATION RT-Q4H PRN 02/24/21 [History] Fluticasone Nasal [place] [Flonase Nasal [place]] 1 spray EA NOSTRIL Q12H PRN 02/24/21 [History] MORPHINE ORAL MANJULA CONC 20mg/mL [Roxanol Oral Soln Conc 20MG/ML] 5 mg PO Q2H PRN 02/24/21 [History] Mag Hydrox/Aluminum Hyd/Simeth [Mylanta Maximum Strength Liq] 10 ml PO Q4H PRN 02/24/21 [History] Magnesium Hydroxide [Milk of Magnesia] 2,400 mg PO Q48H PRN 02/24/21 [History] Meloxicam 7.5 mg PO DAILY@0700 02/24/21 [History] Na Phos,M-B/Na Phos,Di-Ba [Fleet Adult] 133 ml RECTAL Q96H PRN 02/24/21 [History] Nitroglycerin Sl Tabs [Nitrostat] 0.4 mg SUBLINGUAL Q5M PRN 02/24/21 [History] Omeprazole [PriLOSEC] 20 mg PO BID@0530,1830 02/24/21 [History] Polyethylene Glycol 3350 [Miralax] 17 gm PO DAILY@1430 02/24/21 [History] Potassium Chloride ER [K-Dur 10] 10 meq PO BID@0700,1700 02/24/21 [History] Prochlorperazine [Compazine] 10 mg PO DAILY@0700 02/24/21 [History] Prochlorperazine [Compazine] 10 mg PO Q6H PRN 02/24/21 [History] Sennosides/Docusate Sodium [Senna Plus 8.6-50 mg Softgel] 1 cap PO BID@0700,1700 02/24/21 [History] bisacodyL [Dulcolax] 10 mg RECTAL Q72H PRN 02/24/21 [History] ALPRAZolam [Xanax] 0.5 mg PO HS@2100 #4 tab 02/28/21 [Rx] Amiodarone [Cordarone] 200 mg PO BID tab 02/28/21 [Rx] Apixaban [Eliquis] 5 mg PO BID 30 Days #60 tab 02/28/21 [Rx] Atorvastatin [Lipitor] 40 mg PO DAILY tab 02/28/21 [Rx] Budesonide [Pulmicort] 1 mg INHALATION RT-BID ml 02/28/21 [Rx] Cefuroxime Axetil [Ceftin] 500 mg PO BID 4 Days #8 tab 02/28/21 [Rx] Diltiazem Cd [Cardizem CD] 240 mg PO BID@0700,1700 02/28/21 [Rx] Formoterol Fumarate [Perforomist] 20 mcg INHALATION RT-BID ml 02/28/21 [Rx] Ipratropium-Albuterol Nebulize [Duoneb 0.5 mg-3 mg/3 ml Soln] 3 ml INHALATION RT-Q2H PRN ml 02/28/21 [Rx] MORPHINE ORAL MANJULA CONC 20mg/mL [Roxanol Oral Soln Conc 20MG/ML] 10 mg PO DAILY@1030 #3 ml 02/28/21 [Rx] MORPHINE ORAL MANJULA CONC 20mg/mL [Roxanol Oral Soln Conc 20MG/ML] 10 mg PO Q2H PRN #2 ml 02/28/21 [Rx] Furosemide [Lasix] 40 mg PO BID 30 Days #60 tablet 03/02/21 [Rx] Ipratropium-Albuterol Nebulize [Duoneb 0.5 mg-3 mg/3 ml Soln] 3 ml INHALATION RT-QID ml 03/02/21 [Rx] Metoprolol Tartrate [Lopressor] 25 mg PO BID tab 03/02/21 [Rx] guaiFENesin [Mucinex] 600 mg PO Q12HR PRN tablet 03/02/21 [Rx] Follow up Appointment(s)/Referral(s): Ajit Lipscomb DO [STAFF PHYSICIAN] - 1 Week Miguelangel Mcfadden MD [Primary Care Provider] - 1-2 days Donn Ricci DO [Doctor of Osteopathic Medicine] - 1 Week Ambulatory/Diagnostic Orders: Complete Blood Count w/diff [LAB.AMB] Time Frame: 2 Days, Location: None Selected Patient Instructions/Handouts: A-fib (Atrial Fibrillation) (DC), After Radial Heart Catheterization (GEN) Activity/Diet/Wound Care/Special Instructions: Cardiology Instructions: -Please follow up at [facility] with Dr. Lipscomb within 1 week. -Please take Eliquis 5mg BID for thromboembolic protection due to your Atrial fibrillation (irregular heart beat) you are more at risk for stroke. -Amiodarone Taper Instructions: 200mg Twice a Day 02/28/21-03/07/21 200mg Daily 03/08/21-03/15/21 100mg daily thereafter starting 03/16/21. -Please take atorvastatin 40mg daily - this is for your cholesterol -Continue Cardizem at 240mg twice a day to control your heart rhythm Patient is returning to [facility] Follow-up with primary care provider on discharge Continue taking medications as prescribed Continue with antibiotics for 4 days and then may discontinue Follow-up with cardiology outpatient Follow-up pulmonary outpatient for further PFT testing Recommend repeat labs in 2-3 days to monitor WBC and kidney functions Discharge Disposition: TRANSFER TO SNF/ECF
[2021-03-02 11:33] LABS: Glucose,Whole Blood 176 mg/dL (75-99)
[2021-03-02] MEDS: MORPHINE ORAL SOLN 10 MG/5 ML CUP PO SCH (12:55)
--- NOTE | 2021-03-02 14:05 | P.PN ---
Subjective Progress Note Date: 03/02/21 Principal diagnosis: Chest pain 80-year-old female who is admitted to the hospital with complaints of chest discomfort, and nausea. The chest pain was substernal in nature. She was seen in the emergency department on February 24. The patient was admitted to the [address] [place] [address]. We were asked to see the patient is a patient has been previously diagnosed with COPD. She apparently has never seen a lung doctor in the past. The patient apparently smoked for 40 years at about a pack or pack and a half a day. Anyway, the patient does not take any breathing medications at home on a regular basis. She does use oxygen at 3-4 L/m . The patient was seen by cardiology. Her primary issue is that of chest discomfort. She is chronically short of breath with any activity. She's pretty much at baseline though. She denies any cough, wheezing, phlegm production, chest congestion, fever, or chills. The patient in addition to COPD, has a history of CAD, prior bypass grafting, coronary disease, and heart failure. Family history is negative for cardiac disease although apparently there is a family history of kidney issues. White count 18.1, hemoglobin 10.1, hematocrit 34.6, and platelet count 404,000. PT and INR are normal. PTT is 44.8. Sodium 137, potassium 3.8, chlorides 89, CO2 39, anion gap 9, BUN 42, and creatinine 1.08. Based on the bicarbonate concentration of 39, the patient is likely a CO2 retainer, with a baseline CO2 of 68, plus or minus 2 mmHg. Chest x-ray shows some cardiomegaly, and some patchy atelectatic changes in both lungs. Progress note dated 02/27/2021. The patient was admitted with a diagnosis of chest pain. The patient is to have a cardiac catheterization today with Dr. Lipscomb. The patient most likely has underlying significant COPD, based on her smoking history, examination, symptoms, and the fact, that she is likely a CO2 retainer. The patient will need an outpatient evaluation including complete pulmonary function tests, and a 6 minute walk distance. Currently, she is resting comfortably. White count 18.2, hemoglobin 9.7, hematocrit 32 and platelet count 488,000. PTT is 50.3. Sodium and potassium are normal. Chloride 90, CO2 37, anion gap 10, BUN 51, and creatinine 1.02. Chest x-ray from the was already reviewed. Progress note dated 02/28/2021. This is an 80-year-old female with a history of chest pain. The patient underwent cardiac catheterization. I did read the report. Patient is going be treated medically, with very aggressive risk factor modification. In addition, the patient is currently on a blood thinner, and might be considered for a cardioversion down the road. The patient did smoke many years, and likely has underlying significant COPD. The patient likely has at least stage III COPD, based on the fact that she is a retainer of carbon dioxide. We talked about her coming to the office after discharge, for pulmonary function testing in 6 minute walk distance, and she doesn't sound too enthused about that. She also was not too enthused about what cardiology had to say about her. Sodium is 139, potassium 4.2, chlorides 97, CO2 36, anion gap 6, BUN 33, creatinine 1.13. Chest x-ray shows some mild basilar atelectasis, and small bilateral effusions. The patient is seen today 03/01/2021 in follow-up on the regular medical floor. She is currently resting in bed. Awake and alert in no acute distress. She is maintaining O2 saturations in the 90s on 5 L/m per nasal cannula. No worsening shortness of breath, cough or congestion or chest x-ray is stable with some possible congestive heart failure versus pneumonia with small pleural effusions. Urine culture revealed no growth. White count 17.7. Hemoglobin 10.8. Sodium 136. Potassium 3.6. Creatinine 0.96. Glucose 134. She remains on DuoNeb inhalations, Pulmicort and Perforomist inhalations, antibiotics in the form of ceftriaxone, IV diuretics. Anticoagulated with Eliquis. The patient is seen today 03/02/2001 in follow-up on the regular medical floor. She is currently sitting up at the bedside. Awake and alert in no acute distress. 18 O2 saturations in the 90s on 5 L/m per nasal cannula. Sodium 135. Potassium 3.7. Bicarb 38. Creatinine 1.11. Glucose 166. She remains on bronchodilators. Anticoagulated with Eliquis. Objective - Vital Signs Vital signs: Vital Signs Temp 98.5 F 03/02/21 07:00 Pulse 96 03/02/21 08:11 Resp 18 03/02/21 08:00 BP 120/56 03/02/21 07:00 Pulse Ox 95 03/02/21 07:00 Intake & Output 03/01/21 03/02/21 03/02/21 18:59 06:59 18:59 Intake Total 480 970 120 Output Total 700 500 Balance -220 470 120 Intake: Oral 480 970 120 Output: Urine 700 500 Other: Voiding Method External Catheter External Catheter # Bowel Movements 2 - Exam GENERAL EXAM: Alert, 80-year-old female patient, on 5 L nasal cannula, comfortable in no apparent distress. HEAD: Normocephalic. EYES: Normal reaction of pupils, equal size. NOSE: Clear with pink turbinates. THROAT: No erythema or exudates. NECK: No masses, no JVD. CHEST: No chest wall deformity. LUNGS: Equal air entry with crackles in the bilateral bases. CVS: S1 and S2 normal with no audible murmur, irregular rhythm. ABDOMEN: No hepatosplenomegaly, normal bowel sounds, no guarding or rigidity. SPINE: No scoliosis or deformity SKIN: No rashes CENTRAL NERVOUS SYSTEM: No focal deficits, tone is normal in all 4 extremities. EXTREMITIES: There is no peripheral edema. No clubbing, no cyanosis. Peripheral pulses are intact. - Labs CBC & Chem 7: 03/01/21 08:57 03/02/21 07:34 Labs: Abnormal Lab Results - Last 24 Hours (Table) 03/01/21 03/01/21 03/02/21 Range/Units 17:08 20:15 06:12 Sodium (137-145) mmol/L Chloride (98-107) mmol/L Carbon Dioxide (22-30) mmol/L BUN (7-17) mg/dL Creatinine (0.52-1.04) mg/dL Glucose (74-99) mg/dL POC Glucose (mg/dL) 118 H 140 H 124 H (75-99) mg/dL 03/02/21 03/02/21 Range/Units 07:34 11:32 Sodium 135 L (137-145) mmol/L Chloride 90 L (98-107) mmol/L Carbon Dioxide 38 H (22-30) mmol/L BUN 26 H (7-17) mg/dL Creatinine 1.11 H (0.52-1.04) mg/dL Glucose 166 H (74-99) mg/dL POC Glucose (mg/dL) 176 H (75-99) mg/dL Assessment and Plan Assessment: 1 Chest pain, status post cardiac catheterization, to be treated medically. 2 Chronic obstructive pulmonary disease, likely quite severe, as the patient is a CO2 retainer, with a calculated expected PaCO2 of 68, plus or minus 2 mmHg. 3 Previous history of 40 years of tobacco use. 4 History of CAD, status post CABG. 5 History of heart failure. 6 History of atrial fibrillation. 7 History of hypertension. 8 History of chronic anemia. Plan: The patient was seen and evaluated by Dr. Ricci Cleared for discharge from the pulmonary standpoint May require home oxygen Follow-up in the office in 1-2 weeks' time I, the cosigning physician, performed a history & physical examination of the patient. Lungs sounds with crackles in the bilateral posterior bases. Maintaining good O2 saturations in the 90s on 5 L/m per nasal cannula. I discussed the assessment and plan of care with my nurse practitioner, Cyndee Lai. I attest to the above note as dictated by her.
== END 2021-03-02 13:59 | DRG 286 ==
LOC: EC 11:41 → 6NMEDSUR 16:04 → OBSVTOIN 02-26 08:15 → 3SCARD 03-01 16:42
PROVIDERS: ADMIT Hospitalist; ATTEND Hospitalist
PROC: B2111ZZ Fluoroscopy of Multiple Coronary Arteries using Low Osmolar Contrast (ICD-10-PCS; 2021-02-27)
PROC: B2131ZZ Fluoroscopy of Multiple Coronary Artery Bypass Grafts using Low Osmolar Contrast (ICD-10-PCS; 2021-02-27)
PROC: B2181ZZ Fluoroscopy of Left Internal Mammary Bypass Graft using Low Osmolar Contrast (ICD-10-PCS; 2021-02-27)
PROC: 4A023N7 Measurement of Cardiac Sampling and Pressure, Left Heart, Percutaneous Approach (ICD-10-PCS; principal; 2021-02-27 13:30)
PROC: B2151ZZ Fluoroscopy of Left Heart using Low Osmolar Contrast (ICD-10-PCS; 2021-02-27 13:30)
DX: I25.110 Atherosclerotic heart disease of native coronary artery with unstable angina pectoris (principal); I50.33 Acute on chronic diastolic (congestive) heart failure; J96.21 Acute and chronic respiratory failure with hypoxia; J96.22 Acute and chronic respiratory failure with hypercapnia; I48.19 Other persistent atrial fibrillation; J44.1 Chronic obstructive pulmonary disease with (acute) exacerbation; J98.11 Atelectasis; N39.0 Urinary tract infection, site not specified; Z20.822 Contact with and (suspected) exposure to COVID-19; R11.0 Nausea; I11.0 Hypertensive heart disease with heart failure; D50.9 Iron deficiency anemia, unspecified; E78.5 Hyperlipidemia, unspecified; M19.90 Unspecified osteoarthritis, unspecified site; Z79.01 Long term (current) use of anticoagulants; Z79.1 Long term (current) use of non-steroidal anti-inflammatories (NSAID); Z79.82 Long term (current) use of aspirin; Z79.899 Other long term (current) drug therapy; Z87.891 Personal history of nicotine dependence; Z95.1 Presence of aortocoronary bypass graft; Z99.81 Dependence on supplemental oxygen; Z86.79 Personal history of other diseases of the circulatory system; Z88.1 Allergy status to other antibiotic agents; Z88.5 Allergy status to narcotic agent; Z88.8 Allergy status to other drugs, medicaments and biological substances; Z90.49 Acquired absence of other specified parts of digestive tract
CPT/HCPCS: 36415; 71045; 71046; 80048; 80053; 81001; 82728; 83540; 83550; 83735; 83880; 84484; 85025; 85027; 85610; 85730; 87086; 87635; 93005; 93306; 93459; 93571; 94640; 94760; 96365; 96375; 99285